=== PATIENT | female | born 1940 | race Hispanic/Latino ===

== ENCOUNTER 2016-11-13 17:43 | Inpatient (IN) | payer OTHER, MEDICAID ==
[2016-11-13 17:43] VITALS: BMI 17.6
[2016-11-13] MEDS ORDERED: Sodium Chloride 0.9% 500 ML IV STA (18:33)
--- NOTE | 2016-11-13 18:40 | ED PDOC ---
Arrival/HPI - General Chief Complaint: Altered Mental Status Time Seen by Provider: 11/13/16 17:44 Historian: Spouse EM Caveat: Altered Mental Status - History of Present Illness Narrative History of Present Illness (Text): 11/13/16 18:37 Bekah Gray is a 76 year old female, whose past medical history includes DVT, PE , hypertension, and COPD, presents to the emergency department via ambulance for evaluation of altered mental status. Patient lives at home with her son. Patient's , who does not currently stay with patient, states that his son informed that patient has been confused and alerted from baseline for past few days. is a poor historian. ROS limited due to AMS. Symptom Onset: Gradual Symptom Course: Worsening Severity Level: Severe Activities at Onset: Light Associated Symptoms (Text): 11/13/16 18:50 History obtained from the who has not lived with the patient for the last 10 years and from the son who does currently live with her. Son states that for the last several days she's been acting strangely. She does not recognize him and is confused. She usually drinks daily, but has not been drinking for the last 3 or 4 days. She has a very poor by mouth intake. No cough. No dyspnea. No vomiting. No trauma. No travel or exposure. Patient is unable to give any history. She is not oriented to person place or time. She is unable to follow commands. Past Medical History - Provider Review Nursing Documentation Reviewed: Yes - Infectious Disease Hx of Infectious Diseases: None - Tetanus Immunization Tetanus Immunization: Unknown - Past Medical History Past Medical History: Unable to Obtain - Cardiac Hx Cardiac Disorders: Yes Hx Congestive Heart Failure: Yes Hx Hypertension: Yes - Pulmonary Hx Respiratory Disorders: Yes Hx Chronic Obstructive Pulmonary Disease (COPD): Yes - Neurological Hx Neurological Disorder: No - HEENT Hx HEENT Disorder: Yes Hx Cataracts: Yes (bilateral with surgery) Hx Glaucoma: Yes - Renal Hx Renal Disorder: No - Endocrine/Metabolic Hx Endocrine Disorders: No - Hematological/Oncological Hx Blood Disorders: No - Integumentary Hx Dermatological Disorder: No - Musculoskeletal/Rheumatological Hx Musculoskeletal Disorders: Yes Hx Back Pain: Yes Hx Falls: Yes Hx Unsteady Gait: Yes - Gastrointestinal Hx Gastrointestinal Disorders: No - Genitourinary/Gynecological Hx Genitourinary Disorders: Yes Hx Incontinence: Yes - Psychiatric Hx Psychophysiologic Disorder: No Hx Depression: No Hx Emotional Abuse: No Hx Physical Abuse: No Hx Substance Use: No - Past Surgical History Past Surgical History: Unable to Obtain - Surgical History Hx Musculoskeletal Surgery: Yes (3 hip replacements as per grandson) - Anesthesia Hx Anesthesia: Yes Hx Anesthesia Reactions: No - Suicidal Assessment Feels Threatened In Home Enviroment: No Family/Social History - Physician Review Nursing Documentation Reviewed: Yes Family/Social History: No Known Family HX Smoking Status: Former Smoker Hx Alcohol Use: Yes (Social as per grandson) Frequency of alcohol use: Daily Hx Substance Use: No Hx Substance Use Treatment: No Allergies/Home Meds Allergies/Adverse Reactions: Allergies Penicillins Allergy (Intermediate, Verified 11/13/16 18:21) SHORTNESS OF BREATH pentazocine lactate [From Talwin] Allergy (Verified 11/13/16 18:21) SHORTNESS OF BREATH Home Medications: Home Meds Medication Instructions Recorded Confirmed Metoprolol Succinate [Toprol XL] 25 mg PO DAILY 08/24/15 11/13/16 Aspirin [Ecotrin] 81 mg PO DAILY 11/24/15 06/21/16 Atorvastatin [Lipitor] 20 mg PO DAILY 11/24/15 11/13/16 Donepezil [Aricept] 5 mg PO HS 11/24/15 06/21/16 Furosemide [Lasix] 20 mg PO DAILY 11/24/15 11/13/16 Oxybutynin [Oxybutynin Chloride] 5 mg PO Q12 11/24/15 11/13/16 Pantoprazole [Protonix] 40 mg PO DAILY 11/24/15 06/21/16 Prednisolone [Millipred] 20 mg PO DAILY 11/24/15 11/24/15 Sertraline [Zoloft] 50 mg PO HS 11/24/15 06/21/16 Xarelto Rivaroxaban 20 mg PO DAILY 11/24/15 06/21/16 traMADol [Ultram] 50 mg PO BID 11/13/16 11/13/16 Review of Systems - Review of Systems Systems not reviewed;Unavailable: Altered Mental Status Physical Exam Vital Signs Reviewed: Yes Vital Signs Temp Pulse Resp BP Pulse Ox 11/13/16 21:30 97.8 F 74 16 149/94 H 100 11/13/16 20:00 70 16 155/103 H 100 11/13/16 18:14 98.5 F 76 18 149/80 96 Temperature: Afebrile Blood Pressure: Normal Pulse: Regular Respiratory Rate: Normal Appearance: Positive for: Non-Toxic Pain Distress: None Mental Status: Positive for: Confused, other (Alert. Not oriented to person, place or time. ) Finger Stick Blood Glucose: 75 - Systems Exam Head: Present: Atraumatic, Normocephalic Pupils: Present: PERRL Extroacular Muscles: Present: EOMI Conjunctiva: Present: Normal Ears: Present: NORMAL TM, Normal Canal. No: Erythema Mouth: Present: Moist Mucous Membranes Pharnyx: No: ERYTHEMA, EXUDATE, TONSILS ENLARGED Neck: Present: Normal Range of Motion. No: Meningeal Signs, MIDLINE TENDERNESS , Paraspinal Tenderness Respiratory/Chest: Present: Clear to Auscultation, Good Air Exchange, Decreased Breath Sounds. No: Respiratory Distress, Accessory Muscle Use Cardiovascular: Present: Regular Rate and Rhythm, Normal S1, S2. No: Murmurs Abdomen: Present: Normal Bowel Sounds. No: Tenderness, Distention, Peritoneal Signs, Rebound, Guarding Upper Extremity: Present: Normal Inspection. No: Cyanosis, Edema Lower Extremity: Present: Normal Inspection. No: Edema Neurological: Present: CN II-XII Intact, Speech Normal, Motor Func Grossly Intact, Other (patient is unable to follow commands, but able to move all extremities. Unable to examine sensation, coordination and gaze ) Skin: Present: Warm, Dry, Normal Color. No: Rashes Psychiatric: Present: Alert Medical Decision Making ED Course and Treatment: 11/13/16 18:44 Impression: A 76 year old female who presents to the emergency department for confusion and AMS. Plan: -- EKG -- CT Head -- Labs, cardiac enzymes -- Ammonia -- TSH -- Drug screen -- Urinalysis -- Reassess and disposition Progress Notes: 11/13/16 18:45 11/13/16 18:58 EKG shows normal sinus rhythm rate approximately 75 with nonspecific anterior and lateral T-wave changes and no acute ST-T changes 11/13/16 20:45 CT scan of the head as read by the radiologist shows no acute findings 11/13/16 21:46 Discussed with who will admit to Dr. Peña's service - Lab Interpretations Lab Results: 11/13/16 18:40 11/13/16 18:40 Lab Results 11/13/16 18:40: WBC 7.3 D, RBC 4.51, Hgb 12.3, Hct 35.9 L, MCV 79.6 L, MCH 27.3 , MCHC 34.3, RDW 16.3 H, Plt Count 315, MPV 8.8, Gran % 59.9, Lymph % (Auto) 23.8, [place] % (Auto) 12.1 H, Eos % (Auto) 3.9, Baso % (Auto) 0.3, Gran # 4.36, Lymph # 1.7, [place]aden # 0.9 H, Eos # 0.3, Baso # 0.02, PT 10.8, INR 1.00, APTT 25.9 , Sodium 129 L, Potassium 3.5 L, Chloride 97 L, Carbon Dioxide 22, Anion Gap 14 , BUN 29 H, Creatinine 1.0, Est GFR ( Amer) > 60, Est GFR (Non-Af Amer) 54, Random Glucose 85, Calcium 8.9, Phosphorus 4.8 H, Magnesium 2.2, Total Bilirubin 0.6, AST 22, ALT 25, Alkaline Phosphatase 87, Ammonia < 9 L, Lactate Dehydrogenase 378, Total Creatine Kinase 25 L, Troponin I < 0.01 D, Total Protein 7.2, Albumin 3.7, Globulin 3.5, Albumin/Globulin Ratio 1.1, TSH 3rd Generation 0.71, Urine Color Straw, Urine Appearance Clear, Urine pH 6.0, Ur Specific [place] 1.015, Urine Protein Negative, Urine Glucose (UA) Negative, Urine Ketones Negative, Urine Blood Negative, Urine Nitrate Positive H, Urine Bilirubin Negative, Urine Urobilinogen 0.2, Ur Leukocyte Esterase Small H, Urine RBC 0 - 2, Urine WBC 0 - 2, Ur Epithelial Cells 0 - 2, Urine Bacteria Many , Salicylates < 1 L, Urine Opiates Screen Negative, Urine Methadone Screen Negative, Acetaminophen < 10.0 L, Ur Barbiturates Screen Negative, Ur Phencyclidine Scrn Negative, Ur Amphetamines Screen Negative, U Benzodiazepines Scrn Negative, U Oth Cocaine Metabols Negative, U Cannabinoids Screen Negative, Alcohol, Quantitative < 10 I have reviewed the lab results: Yes - RAD Interpretation Radiology Orders: 11/13/16 18:33 HEAD W/O CONTRAST [CT] Stat 11/13/16 18:34 CHEST PORTABLE [RAD] Stat Chest 1 view shows no infiltrate effusion or cardiomegaly Survey Supervisor: ED Physician - EKG Interpretation Interpreted by ED Physician: Yes Type: 12 lead EKG - Medication Orders Current Medication Orders: Discontinued Medications Sodium Chloride (Sodium Chloride 0.9%) 500 mls @ 1,000 mls/hr IV .Q30M STA Stop: 11/13/16 19:02 Last Admin: 11/13/16 18:35 Dose: 1,000 MLS/HR eMAR Start Stop Document 11/13/16 18:35 SF (Rec: 11/13/16 20:46 SF [facility] [id number]) Intravenous Solution Start Date 11/13/16 Start Time 18:35 End Date 11/13/16 End time 19:05 Total Infusion Time 30 - Scribe Statement The provider has reviewed the documentation as recorded by the Ally Kramer Provider Attestation: All medical record entries made by the Ally were at my direction and personally dictated by me. I have reviewed the chart and agree that the record accurately reflects my personal performance of the history, physical exam, medical decision making, and the department course for this patient. I have also personally directed, reviewed, and agree with the discharge instructions and disposition. Disposition/Present on Arrival - Present on Arrival Any Indicators Present on Arrival: No History of DVT/PE: Yes History of Uncontrolled Diabetes: No Urinary Catheter: No History of Decub. Ulcer: No History Surgical Site Infection Following: CABG - Mediastinitis, None - Disposition Have Diagnosis and Disposition been Completed?: Yes Diagnosis: Altered mental status Disposition: HOSPITALIZED Disposition Time: 21:47 Patient Plan: Observation, Telemetry Patient Problems: Current Active Problems Problem Status Diagnosed Altered mental status Acute CHF (congestive heart failure) Acute COPD (chronic obstructive pulmonary disease) Acute Condition: GUARDED
[2016-11-13 19:01] LABS: ADD MANUAL DIFF? NO
[2016-11-13 19:07] LABS: BASO # 0.02 K/mm3 (0.0-2.0); BASO % 0.3 % (0.0-3.0); EOS # 0.3 (0.0-0.7); EOS % 3.9 % (1.5-5.0); GRAN # 4.36 (1.4-6.5); GRAN % 59.9 % (50.0-68.0); HEMATOCRIT 35.9 % (36.0-48.0); LYMPH # 1.7 (1.2-3.4); LYMPH % 23.8 % (22.0-35.0); MEAN CELL VOLUME 79.6 fL (80.0-105.0); MEAN CORPUSCULAR HEMOGLOBIN 27.3 pg (25.0-35.0); MEAN CORPUSCULAR HGB CONC 34.3 g/dl (31.0-37.0); MEAN PLATELET VOLUME 8.8 fl (7.0-11.0); MONO # 0.9 (0.1-0.6); MONO % 12.1 % (1.0-6.0); PLATELET COUNT 315 10^3/uL (120.0-450.0); RED CELL DISTRIBUTION WIDTH 16.3 % (11.5-14.5); WHITE BLOOD COUNT 7.3 10^3/ul (4.5-11.0)
[2016-11-13 19:09] LABS: URINE APPEARANCE CLEAR (CLEAR); URINE BILIRUBIN NEGATIVE (NEGATIVE); URINE BLOOD NEGATIVE (NEGATIVE); URINE COLOR STRAW (YELLOW); URINE GLUCOSE (UA) NEGATIVE (NEGATIVE); URINE KETONE NEGATIVE (NEGATIVE); URINE LEUKOCYTE ESTERASE SMALL Leu/uL (NEGATIVE); URINE PROTEIN NEGATIVE mg/dL (<30 mg/dL); URINE UROBILINOGEN 0.2 E.U./dL (<1 E.U./dL)
[2016-11-13 19:18] LABS: ALB/GLOB RATIO 1.1 (1.1-1.8); ALKALINE PHOSPHATASE 87 U/L (38-133); ALT/SGPT 25 U/L (7-56); AST/SGOT 22 U/L (15-39); BILIRUBIN,TOTAL 0.6 mg/dL (0.2-1.3); BLOOD UREA NITROGEN 29 mg/dL (7-21); CALCIUM 8.9 mg/dL (8.4-10.5); CARBON DIOXIDE 22 mmol/L (21-33); CHLORIDE 97 mmol/L (98-107); GFR AFRICAN-AMERICAN > 60; GLUCOSE,RANDOM 85 mg/dL (70-110); MAGNESIUM 2.2 mg/dL (1.7-2.2); PHOSPHOROUS 4.8 mg/dL (2.5-4.5); POTASSIUM 3.5 mmol/L (3.6-5.0); SODIUM 129 mmol/L (132-148); TOTAL PROTEIN 7.2 g/dL (5.8-8.3)
[2016-11-13 19:19] LABS: PARTIAL THROMBOPLASTIN TIME 25.9 Seconds (23.7-30.8)
[2016-11-13 19:20] LABS: ALCOHOL SERUM < 10 mg/dL (0-10)
[2016-11-13 19:28] LABS: URINE RBC 0 - 2 /hpf (0-2); URINE WBC 0 - 2 /hpf (0-6)
[2016-11-13 19:29] LABS: URINE BACTERIA MANY (NEG); URINE EPITHELIAL CELLS 0 - 2 /hpf (0-5)
[2016-11-13 19:30] LABS: TROPONIN I < 0.01 ng/mL
[2016-11-13 19:48] LABS: THYROID STIMULATING HORMONE 0.71 mIU/mL (0.46-4.68)
[2016-11-14] MEDS ORDERED: Potassium Chloride 10 mEq 100 ML IVPB ONE (01:27)
--- NOTE | 2016-11-14 01:43 | CP.PCM.PN ---
Subjective - Date & Time of Evaluation Date of Evaluation: 11/14/16 Time of Evaluation: 01:41 - Subjective Subjective: S:Nurse Christopher tell that K is 3.5 mEq. No vomiting, diarrhoea. Not on diuretic. Medical record reviewed. O: Last Vital Signs 3 Temp 98.0 F 11/14/16 00:22 Pulse 88 11/14/16 00:22 Resp 16 11/14/16 00:22 BP 155/82 H 11/14/16 00:22 Pulse Ox 98 11/14/16 00:22 Not in distress. LUNGS:Normal breathing pattern. A:Hypokalemia-borderline. P:Hypokalemia. Objective - Vital Signs/Intake and Output Vital Signs (last 24 hours): Temp Pulse Resp BP Pulse Ox 98.0 F 88 16 155/82 H 98 11/14/16 00:22 11/14/16 00:22 11/14/16 00:22 11/14/16 00:22 11/14/16 00:22 - Medications Medications: Current Medications Potassium Chloride (Potassium Chloride 10 Meq/100 Ml) 100 mls @ 100 mls/hr IVPB ONCE ONE Stop: 11/14/16 02:26 - Labs Labs: PT 10.8 Seconds (9.9-11.8) 11/13/16 18:40 INR 1.00 (0.93-1.08) 11/13/16 18:40 APTT 25.9 Seconds (23.7-30.8) 11/13/16 18:40
--- NOTE | 2016-11-14 08:14 | RAD ---
HISTORY: ams COMPARISON: 08/29/2016 FINDINGS: LUNGS: No active pulmonary disease. PLEURA: No significant pleural effusion identified, no pneumothorax apparent. CARDIOVASCULAR: Severe cardiomegaly OSSEOUS STRUCTURES: No significant abnormalities. VISUALIZED UPPER ABDOMEN: Normal. OTHER FINDINGS: None. IMPRESSION: No active disease.
[2016-11-14 08:36] LABS: BLOOD UREA NITROGEN 21 mg/dL (7-21); CALCIUM 8.4 mg/dL (8.4-10.5); CARBON DIOXIDE 22 mmol/L (21-33); CHLORIDE 102 mmol/L (98-107); GFR AFRICAN-AMERICAN > 60; GLUCOSE,RANDOM 87 mg/dL (70-110); POTASSIUM 3.9 mmol/L (3.6-5.0); SODIUM 132 mmol/L (132-148)
--- NOTE | 2016-11-14 09:11 | CT ---
PROCEDURE: CT HEAD WITHOUT CONTRAST. HISTORY: ams COMPARISON: 11/24/2015 TECHNIQUE: Axial computed tomography images were obtained through the head/brain without intravenous contrast. Radiation dose: Total exam DLP = 778 mGy-cm. This CT exam was performed using one or more of the following dose reduction techniques: Automated exposure control, adjustment of the mA and/or kV according to patient size, and/or use of iterative reconstruction technique. FINDINGS: HEMORRHAGE: No intracranial hemorrhage. BRAIN: No mass effect or edema. Severe chronic microvascular changes are seen in the periventricular white matter. There is also moderate atrophy VENTRICLES: Unremarkable. No hydrocephalus. CALVARIUM: Unremarkable. PARANASAL SINUSES: Unremarkable as visualized. No significant inflammatory changes. MASTOID AIR CELLS: Unremarkable as visualized. No inflammatory changes. OTHER FINDINGS: The report concurs with the preliminary [facility] report IMPRESSION: No acute intracranial findings
[2016-11-14] MEDS ORDERED: Pantoprazole 40 mg EC Tab PO SCH (10:00)
--- NOTE | 2016-11-14 10:17 | HP ---
HISTORY OF PRESENT ILLNESS: The patient is a 76-year-old female who presents to [facility] er secondary to altered mental status at home. The patient does not recall things that happened to b ring her here; however, she does believe she might have also fallen when she was at home. PAST MEDICAL HISTORY: Significant for hypertension, history of deep venous thrombosis and pulmonary embolism in the past, COPD and history of vertebral body compression fractures. MEDICAL ALLERGIES: PENICILLIN. SOCIAL HISTORY: No smoking, no drinking, no drug use. MEDICATIONS: Please see MAR. REVIEW OF SYSTEMS: Due to the patient's altered mental status, she is unable to give me a true revie w of systems; however, she does not look like she is in any acute distress. Denies any chest pain, s hortness of breath, nausea; however, states that she is having some abdominal pain. PHYSICAL EXAMINATION: VITAL SIGNS: Blood pressure 120/80. Pulse rate is 84, temperature is 98.9, O2 saturation is 95 on r oom air. HEENT: Normocephalic, atraumatic. Pale conjunctivae. Nonicteric sclerae. NECK: No JVD, no thyromegaly. CARDIOVASCULAR: Regular rate and rhythm. S1, S2 appreciated. No S3 noted. LUNGS: Bilateral air entry is positive. No wheezes or rhonchi. ABDOMEN: Nondistended, nontender. Positive bowel sounds. EXTREMITIES: Peripheral pulses +2 with no pitting edema. NEUROLOGICAL: Alert and oriented x 1. Cranial nerves II-XII grossly intact. LABORATORY DATA: WBCs of 7.3, hemoglobin of 12.3, hematocrit 35.9, platelets of 315. Chemistry with in normal limits this morning after replacing her potassium. Initial troponin was negative. Ammonia level was less than 9. Toxicology is negative. CT scan of the head was done which was also negativ e at this time. ASSESSMENT: 1. Altered mental status. 2. Lumbar fracture in the past. 3. Hypertension. 4. Chronic obstructive pulmonary disease. 5. Questionable history of dementia. PLAN: At this time, we will get a consult with Dr. Yury Clayton for evaluation. I will hold off on an MRI at this point until he decides if that is necessary. IV fluids. Keep the patient n.p.o. due to the fact that the patient is so confused, she needs to have a swallow evaluation done first. Rec onciled her medication and will watch very closely. Morales Salinas MD cc: [id number] TT: 11/14/2016 10:16:03 jn
[2016-11-14] MEDS: Sodium Chloride 0.45% 1,000 ML IV SCH (15:01)
--- NOTE | 2016-11-14 15:01 | CARD ---
APPROVED REPORT EKG Measurement Heart [id number] <Conclusion> Normal sinus rhythm Left axis deviation Nonspecific T wave abnormality Abnormal ECG
[2016-11-14] MEDS: Metoprolol Succinate 25 mg XL Tab PO SCH (15:08)
--- NOTE | 2016-11-14 16:10 | CON ---
DATE: 11/14/2016 CHIEF COMPLAINT: Altered mental status. HISTORY OF PRESENT ILLNESS: The history is obtained from the medical record. This is a 76-year-old woman with history of hypertension, history of DVT, pulmonary embolism in the past, COPD, multiple ve rtebral body compressions, apparently was found confused and altered at home. She does not recall th e things that happened to bring her here but says she might have fallen when she was at home. The CT head showed no acute intracranial abnormalities, just showed an old left parietal infarct from the p ast. She has mild residual subtle right-sided weakness from that. Currently, she is stable. Her sp eech is intact. She is in no acute distress. She is follows simple commands. She is found to be hy ponatremic with sodium 129, low potassium at 3.5 and elevated BUN of 29 indicating she was dehydrated . Urine: Shows positive nitrite and a small leukocyte esterase indicating a small urinary tract inf ection. She is on aspirin 81 mg and Lipitor 20 mg p.o. daily for stroke prevention. PAST MEDICAL HISTORY: Significant for hypertension, DVT, pulmonary embolism, COPD, history of verteb ral body compression fractures. MEDICAL ALLERGIES: PENICILLIN. SOCIAL HISTORY: No illicit drug use, smoking, or ETOH abuse. MEDICATIONS: Reviewed via nurses' reconciliation sheet. REVIEW OF SYSTEMS: A 14-point review of systems is negative except for the HPI. She has baseline de mentia. PHYSICAL EXAMINATION: VITAL SIGNS: Temperature 98.4, pulse rate of 84, blood pressure 131/78, respiratory rate 20, oxygen 98% via room air. GENERAL: The patient is sitting up in bed in no acute distress, smiling. HEENT: Atraumatic, normocephalic. PERRLA. Extraocular muscles intact. NECK: Supple, no JVD, no adenopathy noted. LUNGS: Clear to auscultation. No adventitious sounds. HEART: S1, S2 regular rate and rhythm. No murmurs, rubs, or gallops. ABDOMEN: Soft, nontender, nondistended. Bowel sounds are present. EXTREMITIES: No clubbing, no cyanosis. Peripheral pulses 2+ felt bilaterally. NEUROLOGIC: The patient is alert, oriented to person and place, not much of month and year. Poor at tention span. Slow thought process. Recall after 5 minutes is 0 out of 3. Cranial nerves II throug h XII are intact. MOTOR: Moves all extremities equally, slight increased tone throughout. Has muscle right upper extr emity weakness, which is residual from an old left parietal cerebrovascular accident. SENSORY: Light touch, pinprick, proprioception, vibration intact. COORDINATION: [id number] is intact. GAIT: Deferred for now. LABORATORY DATA: UA shows leukocyte esterase small with positive nitrogen secondary to small urinary tract infection. Her current sodium now is 132, potassium 3.9, chloride 102, carbon dioxide of 22, BUN of 21, creatinine 0.9, random glucose 87. 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 I was called for altered mental status. I think altered mental status is lik victorino secondary to transient confusional state with superimposed underlying deconditioned state and leola ctrolyte abnormalities. At this time, 1. Monitor electrolytes and correct accordingly. 2. Keep the systolic blood pressure between 120 and 130 mmHg. 3. Continue with her Aricept daily for her dementia. 4. Continue with aspirin 81, Lipitor 20 mg p.o. daily for stroke prevention. 5. Get physical therapy evaluation and possible subacute rehabilitation if necessary. 6. At this time, she is clinically stable from my standpoint. Please reconsult as necessary. Yury Clayton MD cc: [id number] TT: 11/14/2016 16:09:58 Confirmation # [id number] Dictation # [id number] musa
[2016-11-15 08:21] LABS: ADD MANUAL DIFF? NO
[2016-11-15 08:35] LABS: ALB/GLOB RATIO 1.1 (1.1-1.8); ALKALINE PHOSPHATASE 85 U/L (38-133); ALT/SGPT 27 U/L (7-56); AST/SGOT 23 U/L (15-39); BILIRUBIN,TOTAL 1.6 mg/dL (0.2-1.3); BLOOD UREA NITROGEN 19 mg/dL (7-21); CALCIUM 8.7 mg/dL (8.4-10.5); CARBON DIOXIDE 20 mmol/L (21-33); CHLORIDE 101 mmol/L (98-107); GFR AFRICAN-AMERICAN > 60; GLUCOSE,RANDOM 59 mg/dL (70-110); POTASSIUM 4.3 mmol/L (3.6-5.0); SODIUM 134 mmol/L (132-148); TOTAL PROTEIN 6.6 g/dL (5.8-8.3)
[2016-11-15 08:36] LABS: BASO # 0.03 K/mm3 (0.0-2.0); BASO % 0.7 % (0.0-3.0); EOS # 0.1 (0.0-0.7); EOS % 2.8 % (1.5-5.0); GRAN # 2.29 (1.4-6.5); GRAN % 53.6 % (50.0-68.0); LYMPH # 1.4 (1.2-3.4); LYMPH % 32.9 % (22.0-35.0); MEAN CELL VOLUME 80.9 fL (80.0-105.0); MEAN CORPUSCULAR HGB CONC 33.3 g/dl (31.0-37.0); MEAN PLATELET VOLUME 8.7 fl (7.0-11.0); MONO # 0.4 (0.1-0.6); PLATELET COUNT 294 10^3/uL (120.0-450.0); RED CELL DISTRIBUTION WIDTH 16.2 % (11.5-14.5); WHITE BLOOD COUNT 4.3 10^3/ul (4.5-11.0)
[2016-11-15] MEDS: Metoprolol Succinate 25 mg XL Tab PO SCH (10:41)
--- NOTE | 2016-11-15 11:55 | PN ---
DATE: 11/15/2016 I see her in her bed. She is pleasantly confused, alert, comfortable, but definitely off from where she usually is. MEDICATIONS: She is on IV fluids, Aricept, Ditropan, Ecotrin, Lasix, Lipitor, Motrin, potassium replacement, Protonix, and metoprolol. PHYSICAL EXAMINATION: VITAL SIGNS: Temp 98.4, 89 pulse, 126/95 blood pressure. I am going to evaluate her blood pressure again, because that is new. Respiratory rate 19, 94 % O2 sat on room air. HEAD: Atraumatic, normocephalic. GENERAL: Alert. She is smiling. She knew me after I told her who I was. HEART: Regular rate. LUNGS: Clear to auscultation. ABDOMEN: Soft. EXTREMITIES: No edema. LABORATORY DATA: She has a 4.3 white count, 12 hemoglobin, 36 hematocrit with 294 platelets. INR 1. She has a 134 sodium; it is better. It was low when she came in. Potassium is 4.3. It was low when she came in. BUN is 19 better. It was high, a little hydrated. Creatinine is better 0.9. GFR is greater than 60. Sugar. Calcium is 8.7. Total bili is 1.6. AST is 23. ALT is 27, alk phos 85, total protein 6.6. Thyroid was fine. The urine though had many bacteria. I am going to call on infectious disease input on IV antibiotics. She is ALLERGIC TO PENICILLIN. We will see how she does with antibiotics. She has been seen by Dr. Clayton, the neurologist. She had a CAT scan of the head, chest x-ray, and EKG, which were fairly well. No acute changes. I am going to add Norvasc, which is another blood pressure medication for the elevated blood pressure. Hoping the antibiotics will help her get rid of the infection, and then maybe she will clear up, and she is probably going to need to have physical therapy and probably go to rehab. Angus Peña DO cc: [id number] TT: 11/15/2016 11:54:11 Confirmation # [id number] Dictation # [id number] jn GLADIS
[2016-11-15] MEDS: Aztreonam 2 Gm in NS 100mL 100 ML IVPB SCH ×2 (14:51→22:05)
--- NOTE | 2016-11-15 15:27 | CP.PCM.CON ---
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 There was no note of fever or chills, no vomiting, no convulsions, no diarrhea, no loss of consciousness. The patient had poor PO intake. In the ED, the patient was not as confused and currently the patient does not recall much why she was brought to the hospital. She denies fever or chills, no nausea or vomiting, no chest pain, no headache or dizziness, no abdominal pain but she complains of occasional suprapubic pain. She denies dysuria, no urinary frequency or hesitancy, no diarrhea. Urine cx is showing gram negative bacilli. Infectious Diseases consult is requested to further evaluate and manage. Review of Systems - Review of Systems All systems: reviewed and no additional remarkable complaints except (as per HPI ) Past Patient History - Infectious Disease Hx of Infectious Diseases: None - Tetanus Immunizations Tetanus Immunization: Unknown - Past Social History Smoking Status: Former Smoker - CARDIAC Hx Cardiac Disorders: Yes Hx Congestive Heart Failure: Yes Hx Hypercholesterolemia: Yes Hx Hypertension: Yes - PULMONARY Hx Respiratory Disorders: Yes Hx Chronic Obstructive Pulmonary Disease (COPD): Yes - NEUROLOGICAL Hx Neurological Disorder: No - HEENT Hx HEENT Problems: Yes Hx Cataracts: Yes - RENAL Hx Chronic Kidney Disease: No - ENDOCRINE/METABOLIC Hx Endocrine Disorders: No - HEMATOLOGICAL/ONCOLOGICAL Hx Blood Disorders: No - INTEGUMENTARY Hx Dermatological Problems: No - MUSCULOSKELETAL/RHEUMATOLOGICAL Hx Musculoskeletal Disorders: Yes Hx Back Pain: Yes Hx Falls: Yes Hx Fractures: Yes (left hip) - GASTROINTESTINAL Hx Gastrointestinal Disorders: No - GENITOURINARY/GYNECOLOGICAL Hx Genitourinary Disorders: Yes Hx Incontinence: Yes - PSYCHIATRIC Hx Psychophysiologic Disorder: No Hx Substance Use: No - SURGICAL HISTORY Hx Surgeries: Yes - ANESTHESIA Hx Anesthesia: Yes Hx Anesthesia Reactions: No Meds Allergies/Adverse Reactions: Allergies Allergy/AdvReac Type Severity Reaction Status Date / Time Penicillins Allergy Intermediate SHORTNESS Verified 11/13/16 18:21 OF BREATH pentazocine lactate Allergy SHORTNESS Verified 11/13/16 18:21 [From Aleksandr] OF BREATH - Medications Medications: Current Medications Amlodipine Besylate (Norvasc) 2.5 mg PO DAILY [facility] Aspirin (Ecotrin) 81 mg PO DAILY [facility] Last Admin: 11/15/16 10:40 Dose: Not Given Atorvastatin Calcium (Lipitor) 20 mg PO DAILY [facility] Last Admin: 11/15/16 10:40 Dose: Not Given Donepezil HCl (Aricept) 5 mg PO HS [facility] Last Admin: 11/14/16 21:09 Dose: Not Given Furosemide (Lasix) 20 mg PO DAILY [facility] Last Admin: 11/15/16 10:40 Dose: Not Given Sodium Chloride (Sodium Chloride 0.45%) 1,000 mls @ 60 mls/hr IV .[id number] [facility] Last Admin: 11/14/16 15:01 Dose: 60 mls/hr Ibuprofen (Motrin Tab) 600 mg PO Q6 PRN PRN Reason: Pain, moderate (4-7) Metoprolol Succinate (Toprol Xl) 25 mg PO DAILY [facility] Last Admin: 11/15/16 10:41 Dose: Not Given Oxybutynin Chloride (Ditropan Tab) 5 mg PO Q12 [facility] Last Admin: 11/15/16 10:40 Dose: Not Given Pantoprazole Sodium (Protonix Inj) 40 mg IVP DAILY [facility] Last Admin: 11/15/16 10:40 Dose: 40 mg Physical Exam - Constitutional Appears: Non-toxic, No Acute Distress - Head Exam Head Exam: NORMAL INSPECTION - ENT Exam ENT Exam: Mucous Membranes Moist - Neck Exam Neck exam: Negative for: Lymphadenopathy, Meningismus - Respiratory Exam Respiratory Exam: Decreased Breath Sounds - Cardiovascular Exam Cardiovascular Exam: +S1, +S2 - GI/Abdominal Exam GI & Abdominal Exam: Soft. absent: Tenderness Results - Vital Signs Recent Vital Signs: Last Vital Signs Temp 98.4 F 11/15/16 06:00 Pulse 89 11/15/16 06:00 Resp 19 11/15/16 06:00 BP 156/95 H 11/15/16 06:00 Pulse Ox 94 L 11/15/16 06:00 - Labs Result Diagrams: 11/15/16 08:19 11/15/16 08:19 Labs: Laboratory Results - last 24 hr 11/15/16 08:19 WBC 4.3 L D RBC 4.45 Hgb 12.0 Hct 36.0 MCV 80.9 MCH 27.0 MCHC 33.3 RDW 16.2 H Plt Count 294 MPV 8.7 Gran % 53.6 Lymph % (Auto) 32.9 [place] % (Auto) 10.0 H Eos % (Auto) 2.8 Baso % (Auto) 0.7 Gran # 2.29 Lymph # 1.4 [place] # 0.4 Eos # 0.1 Baso # 0.03 Sodium 134 Potassium 4.3 Chloride 101 Carbon Dioxide 20 L Anion Gap 17 BUN 19 Creatinine 0.9 Est GFR ( Amer) > 60 Est GFR (Non-Af Amer) > 60 Random Glucose 59 L Calcium 8.7 Total Bilirubin 1.6 H AST 23 ALT 27 Alkaline Phosphatase 85 Total Protein 6.6 Albumin 3.4 Globulin 3.2 Albumin/Globulin Ratio 1.1 Assessment & Plan - Assessment and Plan (Free Text) Plan: Assessment Probable urinary tract infection (suprapubic pain/tenderness with gram negative bacilli in the urine) Probable toxic-metabolic encephalopathy (electrolyte abnormalities) DVT/PE HTN COPD vertebral compression fracture 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
[2016-11-16] MEDS ORDERED: DiphenhydrAMINE 12.5 mg/5 ml LIQ UD (5 ml) PO STA (01:02)
--- NOTE | 2016-11-16 01:03 | CP.PCM.PN ---
Subjective - Date & Time of Evaluation Date of Evaluation: 11/16/16 Time of Evaluation: 01:02 - Subjective Subjective: S:Patient was seen because as per nurse she asked for something to sleep.Can not fall sleep. Patient states ,"I do not know who am I ", "I don not know where am I" Offers no other complaints. Pertinent medical record was reviewed. O: Last Vital Signs 3 Temp 97.8 F 11/16/16 00:01 Pulse 72 11/16/16 02:00 Resp 18 11/16/16 00:01 BP 155/89 H 11/16/16 00:01 Pulse Ox 96 11/16/16 00:01 Awake,alert, not in distress. Confused. LUNGS:Normal breathing pattern. A:Insomnia. Confusion. P:Benadryl 12.5 mg PO x 1. Objective - Vital Signs/Intake and Output Vital Signs (last 24 hours): Temp Pulse Resp BP Pulse Ox 97.6 F 74 20 170/93 H 94 L 11/15/16 18:00 11/15/16 18:00 11/15/16 18:00 11/15/16 18:00 11/15/16 06:00 Intake and Output: 11/15/16 11/16/16 18:59 06:59 Intake Total 0 420 Output Total 5 0 Balance -5 420 - Medications Medications: Current Medications Amlodipine Besylate (Norvasc) 2.5 mg PO DAILY [facility] Last Admin: 11/15/16 11:45 Dose: Not Given Aspirin (Ecotrin) 81 mg PO DAILY [facility] Last Admin: 11/15/16 10:40 Dose: Not Given Atorvastatin Calcium (Lipitor) 20 mg PO DAILY [facility] Last Admin: 11/15/16 10:40 Dose: Not Given Donepezil HCl (Aricept) 5 mg PO HS [facility] Last Admin: 11/15/16 22:05 Dose: 5 mg Furosemide (Lasix) 20 mg PO DAILY [facility] Last Admin: 11/15/16 10:40 Dose: Not Given Sodium Chloride (Sodium Chloride 0.45%) 1,000 mls @ 60 mls/hr IV .[id number] [facility] Last Admin: 11/14/16 15:01 Dose: 60 mls/hr Aztreonam (Azactam 2 Gm) 100 mls @ 100 mls/hr IVPB Q8 [facility] PRN Reason: Protocol Stop: 11/22/16 14:01 Last Admin: 11/15/16 22:05 Dose: 100 mls/hr Ibuprofen (Motrin Tab) 600 mg PO Q6 PRN PRN Reason: Pain, moderate (4-7) Metoprolol Succinate (Toprol Xl) 25 mg PO DAILY [facility] Last Admin: 11/15/16 10:41 Dose: Not Given Oxybutynin Chloride (Ditropan Tab) 5 mg PO Q12 [facility] Last Admin: 11/15/16 22:05 Dose: 5 mg Pantoprazole Sodium (Protonix Inj) 40 mg IVP DAILY [facility] Last Admin: 11/15/16 10:40 Dose: 40 mg - Labs Labs: 11/15/16 08:19 11/15/16 08:19 PT 10.8 Seconds (9.9-11.8) 11/13/16 18:40 INR 1.00 (0.93-1.08) 11/13/16 18:40 APTT 25.9 Seconds (23.7-30.8) 11/13/16 18:40
[2016-11-16] MEDS: Aztreonam 2 Gm in NS 100mL 100 ML IVPB SCH ×3 (03:07→22:52)
[2016-11-16 07:34] LABS: HEMATOCRIT 34.4 % (36.0-48.0); MEAN CELL VOLUME 79.8 fL (80.0-105.0); MEAN CORPUSCULAR HEMOGLOBIN 27.1 pg (25.0-35.0); MEAN PLATELET VOLUME 8.5 fl (7.0-11.0); WHITE BLOOD COUNT 6.6 10^3/ul (4.5-11.0)
[2016-11-16 07:43] LABS: ALB/GLOB RATIO 1.1 (1.1-1.8); ALKALINE PHOSPHATASE 82 U/L (38-133); ALT/SGPT 23 U/L (7-56); AST/SGOT 22 U/L (15-39); BILIRUBIN,TOTAL 1.2 mg/dL (0.2-1.3); BLOOD UREA NITROGEN 16 mg/dL (7-21); CALCIUM 8.6 mg/dL (8.4-10.5); CARBON DIOXIDE 22 mmol/L (21-33); CHLORIDE 102 mmol/L (95-110); GFR AFRICAN-AMERICAN > 60; GLUCOSE,RANDOM 90 mg/dL (70-110); POTASSIUM 4.2 mmol/L (3.6-5.0); SODIUM 132 mmol/L (132-148); TOTAL PROTEIN 6.4 g/dL (5.8-8.3)
--- NOTE | 2016-11-16 09:44 | DS ---
I saw the patient resting in bed. She is more alert, coherent, and alert today. I think the IV anti biotics are making a difference. She is much more comfortable. She is back to her baseline. She is very weak though and needs physical therapy. I am hoping for [facility] possibly for today - it is a third day overnight. MEDICATIONS: She is on IV fluids, Aricept, Azactam, Benadryl, Ditropan, Ecotrin, Lasix, Lipitor, Mot rin, Norvasc, Protonix, and Toprol. PHYSICAL EXAMINATION: VITAL SIGNS: Temp 98.3, 82 pulse, 142/68 blood pressure, 20 respiratory rate, 96% O2 sat on nasal ca nnula. HEENT: Head is atraumatic, normocephalic. Throat is moist. NECK: Supple. HEART: Regular rate. LUNGS: Clear to auscultation. ABDOMEN: Soft. EXTREMITIES: Weak, contracted. She needs physical therapy, probably some subacute rehab before she goes home. LABORATORY DATA: She has a 6.6 white count, 11.7 hemoglobin, 34.4 hematocrit with 296 platelets. So dium 132, potassium 4.2. BUN 16, creatinine 0.8. GFR is greater than 60. Sugar is 90. Calcium is 8.6. Total bili is 1.2. AST is 22, ALT 23, alk phos 82, total protein 6.4. She had many bacteria. She is now on antibiotics, which I think is the reason why she was confused mentally. She was seen by infectious disease who put her on Azactam, and it could have caused the metabolic enc ephalopathy. She has hypertension, COPD, no diabetes, and I hoping that we can get her to subacute r ehab at [facility] today. She is not waking up, and she is mentally back. We will continue the antib iotics over there. I will discuss that with manager of case and social contact worker today, and I am hoping she is a discharge today to [facility]. She was here for change in mentation, UTI, low potassium, low sodium, which have corrected. Angus Peña DO cc: [id number] TT: 11/16/2016 09:44:04 jn
[2016-11-16] MEDS: Metoprolol Succinate 25 mg XL Tab PO SCH (09:50)
[2016-11-16] MEDS ORDERED: Lidocaine 2% Inj (20ml) ONE (12:38)
--- NOTE | 2016-11-16 17:32 | VASCULAR ---
PROCEDURE: Ultrasound and fluoroscopically placed left upper extremity PICC line. HISTORY: Sepsis. Limited IV access. Needs PICC line. PHYSICIAN(S): Norbert Bradford MD. TECHNIQUE: The relative risks and indications of the procedure were explained to the patient and consent obtained. The patient was placed supine on the arteriogram table and the left arm prepped and draped in the usual sterile fashion. A tourniquet was applied to the left axilla. 1% Xylocaine was used to anesthetize the skin and soft tissues at the puncture site above the elbow. The left basilic vein was punctured under direct ultrasound guidance with a micropuncture set. A 0.018 guidewire was advanced centrally and used to measure the length to the SVC/RA junction. A 5 Bulgarian single-lumen PICC line 44 cm long was advanced to the SVC/RA junction. The catheter was flushed and secured. The patient tolerated the procedure well. IMPRESSION: 1. Ultrasound and fluoroscopically placed left upper extremity PICC line. A 5 Bulgarian single-lumen PICC line 44 cm long was advanced to the SVC/RA junction.
--- NOTE | 2016-11-16 21:45 | PN ---
DATE: 11/16/2016 HISTORY OF PRESENT ILLNESS: The patient is in bed in no acute distress, nontoxic. PHYSICAL EXAMINATION: VITAL SIGNS: Temperature is 98, blood pressure is 118/70, respiratory rate of 16. HEENT: Unremarkable. NECK: Supple. LUNGS: Have decreased breath sounds. HEART: Normal S1, S2. ABDOMEN: Soft, nontender. LABORATORY DATA: Reveals a white count of 6.6, hemoglobin of 11, platelets of 296, BUN of 16, creati nine of 0.8. Microbiology is noted and blood cultures are negative. Urine culture is E. coli and it is relatively sensitive ceftriaxone. Review of the orders reveals the patient to be on aztreo nam. ASSESSMENT AND PLAN: A 76-year-old female with a past medical history of deep venous thrombosis, pul monary embolism, hypertension, chronic obstructive pulmonary disease, who was admitted with Escherich ia coli urinary tract infection, pansensitive, and who is ALLERGIC TO PENICILLIN. Currently on aztre onam. The patient is doing much better. The Escherichia coli is resistant to Cipro, sensitive to Ba ctrim, and may be able to use Bactrim double strength p.o. b.i.d. to complete therapy x 5 days. Gavino Esposito MD cc: [id number] TT: 11/16/2016 21:45:45 Confirmation # [id number] Dictation # [id number]
[2016-11-17] MEDS: Aztreonam 2 Gm in NS 100mL 100 ML IVPB SCH ×2 (05:17→13:06)
[2016-11-17] MEDS ORDERED: Pantoprazole 40 mg EC Tab PO SCH (07:30)
[2016-11-17] MEDS: Sodium Chloride 0.45% 1,000 ML IV SCH (09:23)
[2016-11-17] MEDS: Metoprolol Succinate 25 mg XL Tab PO SCH (09:25)
--- NOTE | 2016-11-17 09:37 | DS ---
I am hoping to get her to a subacute rehab. She had a UTI, change in mentation , COPD, low sodium, low potassium and she is doing much better. She is alert. She is comfortable. She wants to go to physical therapy. She is on Aricept, Azactam, Ditropan, Ecotrin, Lasix, Lipitor, Motrin, Norvasc, Protonix, IV fluids and Toprol. PHYSICAL EXAMINATION: VITAL SIGNS: Temp 97.8, 87 pulse, 118/80 blood pressure, 19 respiratory rate. HEENT: Head is atraumatic, normocephalic. Throat is moist. HEART: Regular rate. LUNGS: Clear to auscultation. NECK: Supple. ABDOMEN: Soft, nontender, positive bowel sounds. EXTREMITIES: Mildly contracted, weak. No edema. She has a 6.6 white count, 11.7 hemoglobin, 296 platelets. Sodium 132, potassium 4.2, BUN is 16, creatinine 0.8, GFR is greater than 60, sugar is 90, calcium is 8.6, AST is 22, ALT is , alk phos is 82. I am hoping that we can transfer her to subacute rehab for physical therapy and IV antibiotics for her infection. I will discuss this with case management and social service manager. Angus Peña DO cc: [id number] TT: 11/17/2016 09:36:48 en MTDD
--- NOTE | 2016-11-17 14:46 | PN ---
DATE: 11/17/2016 The patient seen earlier today in 577, bed 2. SUBJECTIVE: No fevers and chills. No nausea. PHYSICAL EXAMINATION: VITAL SIGNS: Temperature is 97. Blood pressure is 114/70, respiratory rate of 16. HEENT: Unremarkable. NECK: Supple. LUNGS: Decreased breath sounds. HEART: Normal S1, S2. ABDOMEN: Soft, nontender. LABORATORY DATA: Reveals a white count of 6.6, hemoglobin of 11. Chemistries reveals the BUN of 16, creatinine of 0.8. Urinalysis is noted and microbiology reveals the patient's urine culture is E. c connor, which is sensitive to Bactrim. The blood cultures are reported to be negative. Review of the c reatinine, the patient's creatinine normal in the past all along. ASSESSMENT AND PLAN: After Dr. Angus Peña's note is reviewed, this is a 76-year-old female with history of deep venous thrombosis, pulmonary emboli with hypertension, chronic obstructive lung disease, admitted with Esche richia coli urinary tract infection, pansensitive. Is ALLERGIC TO PENICILLIN, on aztreonam and doing better. May use Bactrim double strength p.o. b.i.d. to complete for 5 days as discussed with Dr. Hemal Peña. Gavino Esposito MD cc: [id number] TT: 11/17/2016 14:46:10 Confirmation # [id number] Dictation # [id number] an
[2016-11-17 17:16] VITALS: BP 126/78; PULSE 96; RESP 18; TEMP 98.1; O2SAT 99
== END 2016-11-17 18:44 | DRG 689 ==
LOC: ED 17:43 → ERH 21:45 → 2RSO 11-14 01:05 → OBSVTOIN 11-14 09:34 → 5RSO 11-16 20:20
PROVIDERS: ADMIT Family Medicine; ATTEND Family Medicine
PROC: 02HV33Z Insertion of Infusion Device into Superior Vena Cava, Percutaneous Approach (ICD-10-PCS; principal; 2016-11-16)
PROC: B54NZZA Ultrasonography of Left Upper Extremity Veins, Guidance (ICD-10-PCS; 2016-11-16)
DX: N39.0 Urinary tract infection, site not specified (principal); G92 Toxic encephalopathy; I69.351 Hemiplegia and hemiparesis following cerebral infarction affecting right dominant side; E87.1 Hypo-osmolality and hyponatremia; M48.50XA Collapsed vertebra, not elsewhere classified, site unspecified, initial encounter for fracture; F03.90 Unspecified dementia, unspecified severity, without behavioral disturbance, psychotic disturbance, mood disturbance, and anxiety; J44.9 Chronic obstructive pulmonary disease, unspecified; E86.0 Dehydration; E87.6 Hypokalemia; B96.20 Unspecified Escherichia coli [E. coli] as the cause of diseases classified elsewhere; I10 Essential (primary) hypertension; Z86.718 Personal history of other venous thrombosis and embolism; G47.00 Insomnia, unspecified; Z86.711 Personal history of pulmonary embolism; Z88.0 Allergy status to penicillin

== ENCOUNTER 2017-01-07 21:02 | Inpatient (IN) | payer MEDICAID, OTHER ==
[2017-01-07 21:10] VITALS: BMI 20.2
--- NOTE | 2017-01-07 21:33 | ED PDOC ---
Arrival/HPI - General Chief Complaint: Shortness Of Breath Time Seen by Provider: 01/07/17 21:20 - History of Present Illness Narrative History of Present Illness (Text): 01/07/17 21:32 Patient is a 76 y/o F with hx of dementia, htn, copd, dvt, and pe, on coumadin, presenting with complaint of shortness of breath. Patient reports pain "all over" and shortness of breath. She is a poor historian and family cannot provide additional list of medical problems or medications. They report that patient has had numerous recent hospitalizations- with last one at [place] for +blood cultures with discharge <1 week ago. They report that patient has been in declining health over the last 3 weeks and has worsening dementia, generalized weakness, and depression as is now essentially wheelchair bound. POA: León Gray Past Medical History - Infectious Disease Hx of Infectious Diseases: None - Tetanus Immunization Tetanus Immunization: Unknown - Past Medical History Past Medical History: Unable to Obtain - Cardiac Hx Cardiac Disorders: Yes Hx Congestive Heart Failure: Yes Hx Hypertension: Yes - Pulmonary Hx Respiratory Disorders: Yes Hx Chronic Obstructive Pulmonary Disease (COPD): Yes - Neurological Hx Neurological Disorder: No - HEENT Hx HEENT Disorder: Yes Hx Cataracts: Yes - Renal Hx Renal Disorder: No - Endocrine/Metabolic Hx Endocrine Disorders: No - Hematological/Oncological Hx Blood Disorders: No - Integumentary Hx Dermatological Disorder: No - Musculoskeletal/Rheumatological Hx Musculoskeletal Disorders: Yes Hx Back Pain: Yes Hx Falls: Yes Hx Fractures: Yes (left hip) - Gastrointestinal Hx Gastrointestinal Disorders: No - Genitourinary/Gynecological Hx Genitourinary Disorders: Yes Hx Incontinence: Yes - Psychiatric Hx Psychophysiologic Disorder: No Hx Substance Use: No - Past Surgical History Past Surgical History: Unable to Obtain - Surgical History Hx Musculoskeletal Surgery: Yes (3 hip replacements as per grandson) - Anesthesia Hx Anesthesia: Yes Hx Anesthesia Reactions: No - Suicidal Assessment Feels Threatened In Home Enviroment: No Family/Social History Family/Social History: Unknown Family HX Smoking Status: Former Smoker Hx Alcohol Use: Yes Hx Substance Use: No Hx Substance Use Treatment: No Allergies/Home Meds Allergies/Adverse Reactions: Allergies Penicillins Allergy (Intermediate, Verified 11/13/16 18:21) SHORTNESS OF BREATH pentazocine lactate [From Talwin] Allergy (Verified 11/13/16 18:21) SHORTNESS OF BREATH Home Medications: Home Meds Medication Instructions Recorded Confirmed Ciprofloxacin [Cipro] 500 mg PO Q12H 01/07/17 01/07/17 Metronidazole [Flagyl] 500 mg PO Q8H 01/07/17 01/07/17 Warfarin [Coumadin] mg PO DAILY 01/07/17 Review of Systems - Review of Systems Constitutional: Fatigue, Weight Change. absent: Fevers Eyes: absent: Vision Changes ENT: absent: Hearing Changes Respiratory: SOB. absent: Cough, Sputum, Wheezing Cardiovascular: Palpitations. absent: Chest Pain, Edema, Calf Pain, VIVEROS, Orthopnea, Syncope Gastrointestinal: absent: Abdominal Pain, Constipation, Diarrhea, Nausea, Vomiting Genitourinary Female: absent: Dysuria Neurological: absent: Headache, Focal Weakness Psychiatric: Depression. absent: Suicidal Ideation Physical Exam Vital Signs Temp Pulse Resp BP Pulse Ox 01/07/17 23:18 99 H 19 136/84 99 01/07/17 21:26 24 96 01/07/17 21:10 98.6 F 109 H 20 126/79 98 Temperature: Afebrile Blood Pressure: Normal Pulse: Tachycardic Respiratory Rate: Tachypneic Appearance: Positive for: Well-Appearing, Non-Toxic, Comfortable Pain Distress: None Mental Status: Positive for: Alert and Oriented X 3, other (cachetic) - Systems Exam Head: Present: Atraumatic, Normocephalic Pupils: Present: PERRL Mouth: Present: Moist Mucous Membranes Respiratory/Chest: Present: Clear to Auscultation, Good Air Exchange. No: Respiratory Distress Cardiovascular: Present: Other (irregularly irregular) Abdomen: No: Tenderness, Distention, Rebound, Guarding Back: Present: Normal Inspection Lower Extremity: Present: Other (moving extremities x 4) Neurological: Present: GCS=15, CN II-XII Intact, Speech Normal Psychiatric: Present: Alert, Oriented x 3 Medical Decision Making ED Course and Treatment: 01/07/17 21:50 EKG shows atrial fibrillation at 110bpm (family reports that this is known condition) 01/07/17 22:32 Cxray limited by body position but shows patchy R sided infiltrate. Patient is tachycardic with elevated lactate. Code sepsis called. 01/07/17 22:47 Patient has elevated wbc, tachycardia and elevated lactate. Code sepsis called and antibiotics and fluids given. INR elevated to 1.57. PE considered in differential but less likely due to current anticoagulation and cxray result. Patient has multiple electrolyte abnormalities and replacement ordered. Trop negative but BNP elevated. IVF thought more necessary due to pneumonia and will monitor respiratory status. However likely component of chf. Patient is in atrial fibrillation and reports hx of, but no b-david or medication that I can see. Will treat underlying sepsis and believe that will help the tachycardia (current HR:103) Will speak to Dr. Foley, covering for Dr. Peña. 01/07/17 22:53 01/07/17 23:28 - Lab Interpretations Lab Results: 01/07/17 21:35 01/07/17 21:35 Lab Results 01/07/17 21:50: Urine Color Yellow, Urine Appearance Clear, Urine pH 6.0, Ur Specific [place] 1.025, Urine Protein 30 H, Urine Glucose (UA) 250 H, Urine Ketones Negative, Urine Blood Moderate H, Urine Nitrate Negative, Urine Bilirubin Negative, Urine Urobilinogen 0.2, Ur Leukocyte Esterase Negative, Urine RBC 5 - 10, Urine WBC 0 - 2, Ur Epithelial Cells 4 - 5, Hyaline Casts 0 - 2 01/07/17 21:35: pO2 63 H, VBG pH 7.43, VBG pCO2 29.0 L, VBG HCO3 19.2 L, VBG Total CO2 20.1 L, VBG O2 Sat (Calc) 94.6 H, VBG Base Excess -3.7 L, VBG Potassium 3.6, Sodium 133.0, Chloride 103.0, Glucose 206 H, Lactate 2.4 H, FiO2 21.0, Venous Blood Potassium 3.6 01/07/17 21:35: Sodium 130 L, Chloride 106, Potassium 3.4 L, Carbon Dioxide 18 L , Anion Gap 9 L, BUN 12, Creatinine 0.6, Est GFR ( Amer) > 60, Est GFR ( Non-Af Amer) > 60, Random Glucose 185 H, Calcium 7.8 L, Phosphorus 1.9 L, Magnesium 1.7, Total Bilirubin 0.4, AST 48 H, ALT 34, Alkaline Phosphatase 123, Total Creatine Kinase 46, Troponin I 0.04 D, NT-Pro-B Natriuret Pep 5030 H, Total Protein 5.4 L, Albumin 2.6 L, Globulin 2.9, Albumin/Globulin Ratio 0.9 L 01/07/17 21:35: PT 17.0 H, INR 1.57 H, APTT 35.8 H 01/07/17 21:35: WBC 12.7 H D, RBC 4.98, Hgb 14.6, Hct 41.8, MCV 83.9, MCH 29.3, MCHC 34.9, RDW 19.1 H, Plt Count 235, MPV 8.9, Gran % 83.6 H, Lymph % (Auto) 9.6 L, [place] % (Auto) 6.5 H, Eos % (Auto) 0.1 L, Baso % (Auto) 0.2, Gran # 10.59 H, Lymph # 1.2, [place] # 0.8 H, Eos # 0.0, Baso # 0.02 - RAD Interpretation Radiology Orders: 01/07/17 21:28 CHEST PORTABLE [RAD] Stat - Medication Orders Current Medication Orders: Vancomycin HCl (Vancomycin 1gm) 1 gm in 250 mls @ 167 mls/hr IVPB STAT STA PRN Reason: Protocol Stop: 01/08/17 00:03 Last Admin: 01/07/17 22:49 Dose: 167 mls/hr Meropenem 1g/NS 100mL IVPB (Meropenem 1g/Ns 100ml Ivpb) 1 gm in 100 mls @ 100 mls/hr IVPB STAT STA PRN Reason: Protocol Stop: 01/07/17 23:41 Discontinued Medications Sodium Chloride 1,500 ml/ IV (SUPPLIES) 1,500 mls @ 2,726.64 mls/hr IV ONCE ONE PRN Reason: 60 ML/KG/HR Stop: 01/07/17 22:34 Last Admin: 01/07/17 22:50 Dose: 2,726.64 mls/hr Potassium Phos/Sodium Phos (Neutra-Phos) 1 pkt PO STAT STA Stop: 01/07/17 22:12 Last Admin: 01/07/17 22:31 Dose: 1 pkt Disposition/Present on Arrival - Present on Arrival Any Indicators Present on Arrival: No History of DVT/PE: No History of Uncontrolled Diabetes: No Urinary Catheter: No History of Decub. Ulcer: No History Surgical Site Infection Following: None - Disposition Have Diagnosis and Disposition been Completed?: Yes Diagnosis: Pneumonia Disposition: HOSPITALIZED Disposition Time: 22:54 Patient Plan: Admission Patient Problems: Current Active Problems Problem Status Onset Pneumonia Acute Condition: FAIR
[2017-01-07 21:46] LABS: ADD MANUAL DIFF? NO
[2017-01-07 21:52] LABS: BASO # 0.02 K/mm3 (0.0-2.0); BASO % 0.2 % (0.0-3.0); EOS % 0.1 % (1.5-5.0); GRAN # 10.59 (1.4-6.5); GRAN % 83.6 % (50.0-68.0); HEMATOCRIT 41.8 % (36.0-48.0); LYMPH # 1.2 (1.2-3.4); LYMPH % 9.6 % (22.0-35.0); MEAN CELL VOLUME 83.9 fL (80.0-105.0); MEAN CORPUSCULAR HEMOGLOBIN 29.3 pg (25.0-35.0); MEAN CORPUSCULAR HGB CONC 34.9 g/dl (31.0-37.0); MEAN PLATELET VOLUME 8.9 fl (7.0-11.0); MONO # 0.8 (0.1-0.6); MONO % 6.5 % (1.0-6.0); PLATELET COUNT 235 10^3/uL (120.0-450.0); RED CELL DISTRIBUTION WIDTH 19.1 % (11.5-14.5); WHITE BLOOD COUNT 12.7 10^3/ul (4.5-11.0)
[2017-01-07 21:53] LABS: VENOUS BLOOD GAS BASE EXCESS -3.7 mmol/L (0.0-2.0); VENOUS BLOOD PH 7.43 (7.32-7.43)
[2017-01-07 22:06] LABS: ALB/GLOB RATIO 0.9 (1.1-1.8); ALKALINE PHOSPHATASE 123 U/L (38-133); ALT/SGPT 34 U/L (7-56); AST/SGOT 48 U/L (15-39); BILIRUBIN,TOTAL 0.4 mg/dL (0.2-1.3); BLOOD UREA NITROGEN 12 mg/dL (7-21); CALCIUM 7.8 mg/dL (8.4-10.5); CARBON DIOXIDE 18 mmol/L (21-33); CHLORIDE 106 mmol/L (98-107); GFR AFRICAN-AMERICAN > 60; GLUCOSE,RANDOM 185 mg/dL (70-110); INR 1.57 (0.93-1.08); MAGNESIUM 1.7 mg/dL (1.7-2.2); PARTIAL THROMBOPLASTIN TIME 35.8 Seconds (23.7-30.8); PHOSPHOROUS 1.9 mg/dL (2.5-4.5); POTASSIUM 3.4 mmol/L (3.6-5.0); SODIUM 130 mmol/L (132-148); TOTAL PROTEIN 5.4 g/dL (5.8-8.3)
[2017-01-07] MEDS ORDERED: Potassium & Sodium Phosphate PO STA (22:11)
[2017-01-07 22:14] LABS: URINE BILIRUBIN NEGATIVE (NEGATIVE); URINE BLOOD MODERATE (NEGATIVE); URINE GLUCOSE (UA) 250 mg/dL (NEGATIVE); URINE KETONE NEGATIVE (NEGATIVE); URINE LEUKOCYTE ESTERASE NEGATIVE Leu/uL (NEGATIVE); URINE PROTEIN 30 mg/dL (<30 mg/dL); URINE UROBILINOGEN 0.2 E.U./dL (<1 E.U./dL)
[2017-01-07 22:16] LABS: TROPONIN I 0.04 ng/mL
[2017-01-07 22:21] LABS: URINE APPEARANCE CLEAR (CLEAR); URINE COLOR YELLOW (YELLOW)
[2017-01-07 22:26] LABS: URINE WBC 0 - 2 /hpf (0-6)
[2017-01-07] MEDS ORDERED: Vancomycin 1gm in NS 250ml 1 GM/250 ML BAG IVPB STA (22:34)
[2017-01-07] MEDS ORDERED: Piperacillin/Tazobact 3.375 gm 100 ML IVPB STA (22:34)
[2017-01-07] MEDS ORDERED: Meropenem 1g/NS 100mL IVPB 1 GM/100 ML PIGGYBACK IVPB STA (22:42)
[2017-01-08 02:04] LABS: VENOUS BLOOD GAS BASE EXCESS -9.6 mmol/L (0.0-2.0)
[2017-01-08 02:25] LABS: VENOUS BLOOD PH 7.19 (7.32-7.43)
--- NOTE | 2017-01-08 04:52 | PCM.SEPTIC ---
Sepsis Progress Note - Reassessment Type Date of Evaluation: 01/08/17 Time of Evaluation: 04:30 Reassessment Type: Non-invasive reassessment - Non Invasive Reassessment Were the most recent vital sign reviewed: Yes Vital Sign (Latest): Temp Pulse Resp BP Pulse Ox 97.6 F 81 18 135/79 99 01/08/17 02:26 01/08/17 02:26 01/08/17 02:26 01/08/17 02:01/07/17 23:18 Cardiovascular: Yes: Tachycardia, Irregularly Irregular. No: Murmur Respiratory: No: Respiratory Distress Capillary Refill: Normal (Less than 2 sec) Skin: Warm, Dry, Ecchymosis
[2017-01-08] MEDS ORDERED: Vancomycin 1gm in NS 250ml 250 ML IVPB SCH (07:00)
[2017-01-08] MEDS ORDERED: Levalbuterol 0.63 MG/3 ML Inhal Soln UD IH PRN (07:41)
[2017-01-08] MEDS: Insulin Reg-MEDIUM-Coverage SC SCH ×4 (08:00→21:44)
[2017-01-08] MEDS: Sodium Chloride 0.45% 1,000 ML IV SCH (08:13)
--- NOTE | 2017-01-08 08:14 | HP ---
I know the patient very well from house calls. She recently just got released from a rehab center and she went home and after a few days she was sent to the Emergency Room. She was coughing and short of breath. It seems like she is having pneumonia at this time. She is very weak, not talking that well. She was at [facility] for positive blood cultures less than a week ago and now she is back here in the hospital. PAST MEDICAL HISTORY: Dementia, hypertension, COPD, DVT, PE, on Coumadin. Difficult to get a lot of history from her. Back pain, history of falls, left hip fracture with ORIF, incontinence, 3 hip replacements as per the grandson. FAMILY HISTORY: Hypertension in the family. SOCIAL HISTORY: A former smoker. She does still drink alcohol, no substance abuse. ALLERGIES: PENICILLIN AND TALWIN. MEDICATIONS: She takes Cipro, Flagyl, Coumadin at home. REVIEW OF SYSTEMS: No acute vision or hearing changes, but old. Lethargic. She is short of breath, mild cough. No chest pain, no swelling. No abdominal pain. No problems urinating. No headache, no dizziness. She is depressed, but not suicidal. No anxious. PHYSICAL EXAMINATION: VITAL SIGNS: She has a 98.6 temp, 109 pulse, 20 respiratory rate, 126/79 blood pressure, 98% O2 sat on room air. HEENT: Head is atraumatic, normocephalic. Extraocular muscles are intact. Pupils equal, reactive to light. GENERAL: She is alert, not talking much. You have to really encourage her just to say hello. She looks a little lethargic. LUNGS: Have decreased breath sounds bilaterally, poor exchange. HEART: Irregularly irregular Coumadin for the atrial fibrillation. ABDOMEN: Soft, nontender, positive bowel sounds, no guarding, no rebound, no CVA tenderness. EXTREMITIES: Mildly contracted, very weak all 4 extremities. NEUROLOGIC: GCS is 15. Cranial nerves II-XII grossly intact. Alert. EKG showed atrial fib at 110. On chest x-ray, it showed a patchy right-sided infiltrate. BLOOD TESTS: White count 12.7, 14.6 hemoglobin, 41.8 hematocrit with 235 platelets. INR 1.57. I will have to increase her Coumadin. She was a 7.19 acidotic pH. Sodium 130, potassium 3.4. We will replace the potassium. BUN 12 , creatinine 0.6, GFR is greater than 60, sugar is 185. We will give her some coverage. Calcium 7.8, phosphorus 1.9, total bili is 0.4, AST is 48, ALT is 34 , alk phos 123. Troponin was 0.04, intermittent. Will check more troponins. BNP was 5030. I am going to get cardiology in. She might need to be on Lasix. Total protein is 5.4. Urine was moderate blood. She is currently on IV fluids, warfarin, potassium replacement, IV Merrem. She is ALLERGIC TO PENICILLIN. She got a dose of vancomycin. We will call in infectious disease, pulmonary and cardiology. We will check her troponins. She is here for pneumonia, congestive heart failure. We will order physical therapy. Angus Peña DO cc: [id number] TT: 01/08/2017 08:13:39 en MTDD
--- NOTE | 2017-01-08 08:21 | RAD ---
HISTORY: shortness of breath COMPARISON: 11/13/2016 FINDINGS: LUNGS: There are persistent low lung volumes. PLEURA: There are small pleural effusions. No pneumothorax. CARDIOVASCULAR: The heart is normal in size. Atherosclerotic aortic arch calcifications are present. OSSEOUS STRUCTURES: There is a severe S-shaped scoliosis. VISUALIZED UPPER ABDOMEN: Normal. OTHER FINDINGS: None. IMPRESSION: Persistent low lung volumes and small pleural effusions.
[2017-01-08] MEDS: Levalbuterol 0.63 MG/3 ML Inhal Soln UD IH SCH ×3 (08:34→19:38)
--- NOTE | 2017-01-08 08:35 | CON ---
DATE: 01/08/2017 REASON FOR CONSULTATION: Pneumonia. REFERRING PHYSICIAN: Dr. Angus Peña History is obtained via extensive discussion with Dr. Peña. I have also reviewed the chart at length. The patient does not appear to be an adequate historian. The patient is a chronically ill 76-year-old female, appearing much older than her stated age, with a history of chronic obstructive pulmonary disease, venous thromboembolism in the past (on Coumadin), hypertension, dementia, who presents to [facility] with increasing shortness of breath for the past 2 days. The patient denies cough or sputum production. There is also no history of chest pain, coughing up of blood or chest pain -- made worse with deep respirations. There is no history of temperatures, chills or infectious exposure. There is no history of night sweats. There is a history of weight loss with decreased appetite over the past few months. No history of leg or calf pains. No history of syncope or diaphoresis. No history of recent travel or trauma. REVIEW OF SYSTEMS: No history of nausea, vomiting or diarrhea. No acute urinary symptoms. Rest is negative. ALLERGIES: PENICILLIN. SOCIAL HISTORY: Positive for tobacco, negative for alcohol. FAMILY HISTORY: No inheritable diseases. HOME MEDICATIONS: Include Flagyl, ciprofloxacin, Coumadin. PHYSICAL EXAMINATION: GENERAL: The patient is not short of breath at rest. She is not using accessory muscles for breathing. VITAL SIGNS: Temperature is 98.0, pulse on the monitor is 88, respiratory rate 18, blood pressure 137/92. Oxygen saturation on nasal cannula is 99%. HEENT: Normocephalic, atraumatic. No JVD. CARDIOVASCULAR: Systolic ejection murmur at the lower left sternal border. No S3 gallop. LUNGS: Decreased breath sounds at the bases. Minimal bilateral rhonchi. No wheezing. EXTREMITIES: No clubbing, cyanosis, or edema. Calves are nontender to palpation. GASTROINTESTINAL: Abdomen is soft, nontender, nondistended. Bowel sounds are positive. SKIN: No acute rash. NEUROLOGIC: Limited at the present time. PERTINENT LABORATORY DATA: Chest x-ray was done yesterday and reviewed. The chest x-ray is a very poor portable film. It is also very rotated. There appears to be a new patchy infiltrate noted in the right lower lobe. CBC: White count 12.7, hemoglobin 14.6, hematocrit 41.8, platelets of 235. INR 1.57. Complete metabolic profile: Sodium 130, potassium 3.4, carbon dioxide 18 , anion gap 9, glucose 185, calcium 7.8, phosphorus 1.9, AST 48, troponin 0.04, B-type natriuretic peptide 5030, total protein 5.4, albumin 2.6. Rest of the metabolic profile is within normal limits. IMPRESSION: 1. Right lower lobe pneumonia. 2. Chronic obstructive pulmonary disease. 3. Increased B-type natriuretic peptide -- rule out congestive heart failure. 4. Multiple electrolyte abnormalities. PLAN: Again, I did discuss the case with Dr. Peña at length. I have also reviewed the chart at length. The patient presents to [facility] with main complaint of shortness of breath for the past 2 days. There are no other new significant pulmonary symptoms reported. I did review the chest x- ray as above. Again, the x-ray is a very poor film -- but appears to show a new right lower lobe infiltrate. Haro cultures have been ordered and will be analyzed when feasible. The patient has been started on antibiotic therapy -- as per infectious disease. Input by Dr. Garcia is noted. Procalcitonin has also been ordered. On physical exam, the patient is in mild bronchospasm. There is no significant alveolar-arterial gradient. Oxygen saturation on nasal cannula is 99%. I will start the patient on Xopenex nebulizer treatments this morning. I will also start aspiration precautions. Cardiology evaluation with has been ordered. The patient does appear improved this morning -- compared to the past few days. I would also like to repeat the chest x-ray -- in a few days -- for comparison. Overall status of this patient does appear poor. Again, I did discuss the above with Dr. Peña. Thank you very much for this pulmonary consultation. Junior Hollins MD cc: [id number] TT: 01/08/2017 08:34:52 Confirmation # [id number] Dictation # [id number] en MTDD
[2017-01-08] MEDS: Vancomycin 1gm in NS 250ml 1 GM/250 ML BAG IVPB SCH ×2 (08:36→20:01)
[2017-01-08] MEDS: Potassium Chloride 20 mEq ER Tab PO SCH ×2 (08:37→09:09)
[2017-01-08 08:49] LABS: VENOUS BLOOD GAS BASE EXCESS -5.2 mmol/L (0.0-2.0); VENOUS BLOOD PH 7.38 (7.32-7.43)
--- NOTE | 2017-01-08 10:31 | CP.PCM.CON ---
History of Present Illness - History of Present Illness History of Present Illness: 76 year old female with PMH of HTN, COPD, DVT and PE on anticoagulation, cataracts, history of left hip fracture S/P arthroplasty, history of urinary incontinence was brought in to [facility] because of shortness of breath and cough. She has been admitted recently in other hospitals for the same complaints and the last discharge was less than a week ago. Currently the patient is also complaining of generalized malaise, but denies fever or chills, no nausea or vomiting, no chest pain, no chest tightness, no abdominal pain, no sore throat, no diarrhea, no dysuria. In the ED, CXR shows low lung volumes and small pleural effusions. Infectious Diseases consult is requested to further evaluate and manage. Review of Systems - Review of Systems All systems: reviewed and no additional remarkable complaints except (as per HPI ) Past Patient History - Infectious Disease Hx of Infectious Diseases: None - Tetanus Immunizations Tetanus Immunization: Unknown - Past Social History Smoking Status: Former Smoker - CARDIAC Hx Cardiac Disorders: Yes Hx Congestive Heart Failure: Yes Hx Hypertension: Yes - PULMONARY Hx Respiratory Disorders: Yes Hx Chronic Obstructive Pulmonary Disease (COPD): Yes - NEUROLOGICAL Hx Neurological Disorder: No - HEENT Hx HEENT Problems: Yes Hx Cataracts: Yes - RENAL Hx Chronic Kidney Disease: No - ENDOCRINE/METABOLIC Hx Endocrine Disorders: No - HEMATOLOGICAL/ONCOLOGICAL Hx Blood Disorders: No - INTEGUMENTARY Hx Dermatological Problems: No - MUSCULOSKELETAL/RHEUMATOLOGICAL Hx Musculoskeletal Disorders: Yes Hx Back Pain: Yes Hx Falls: Yes Hx Fractures: Yes (left hip) - GASTROINTESTINAL Hx Gastrointestinal Disorders: No - GENITOURINARY/GYNECOLOGICAL Hx Genitourinary Disorders: Yes Hx Incontinence: Yes - PSYCHIATRIC Hx Psychophysiologic Disorder: No - SURGICAL HISTORY Hx Musculoskeletal Surgery: Yes (3 hip replacements as per grandson) - ANESTHESIA Hx Anesthesia: Yes Hx Anesthesia Reactions: No Meds Allergies/Adverse Reactions: Allergies Allergy/AdvReac Type Severity Reaction Status Date / Time Penicillins Allergy Intermediate SHORTNESS Verified 11/13/16 18:21 OF BREATH pentazocine lactate Allergy SHORTNESS Verified 11/13/16 18:21 [From Aleksandr] OF BREATH - Medications Medications: Current Medications Sodium Chloride (Sodium Chloride 0.45%) 1,000 mls @ 30 mls/hr IV .Q24H LOIS Potassium Chloride (K-Dur 20 Meq Er Tab) 20 meq PO BRK LOIS Warfarin Sodium (Coumadin) 2 mg PO 1800 LOIS PRN Reason: Protocol Physical Exam - Constitutional Appears: Other (ill-appearing, mouth breathing but only slightly tachypneic) - Head Exam Head Exam: NORMAL INSPECTION - ENT Exam ENT Exam: Mucous Membranes Moist - Neck Exam Neck exam: Negative for: Lymphadenopathy, Meningismus - Respiratory Exam Respiratory Exam: Decreased Breath Sounds (with crackles noted) - Cardiovascular Exam Cardiovascular Exam: +S1, +S2 - GI/Abdominal Exam GI & Abdominal Exam: Soft. absent: Tenderness Results - Vital Signs Recent Vital Signs: Last Vital Signs Temp 98 F 01/08/17 05:33 Pulse 102 H 01/08/17 05:34 Resp 18 01/08/17 05:33 BP 137/92 H 01/08/17 05:33 Pulse Ox 99 01/07/17 23:18 - Labs Result Diagrams: 01/07/17 21:35 01/07/17 21:35 Labs: Laboratory Results - last 24 hr 01/08/17 01:45 pO2 35 VBG pH 7.19 L* VBG pCO2 49.0 VBG HCO3 18.7 L VBG Total CO2 20.2 L VBG O2 Sat (Calc) 63.3 VBG Base Excess -9.6 L VBG Potassium 3.6 Sodium 135.0 Chloride 107.0 Glucose 101 Lactate 3.0 H FiO2 21.0 Venous Blood Potassium 3.6 Assessment & Plan - Assessment and Plan (Free Text) Plan: Assessment Consider sepsis due to right lower lobe healthcare-associated pneumonia, on top of acute on chronic congestive heart failure HTN COPD DVT and PE on anticoagulation cataracts history of left hip fracture S/P arthroplasty history of urinary incontinence Plan Started patient on Vancomycin and Merrem (patient has PCN allergy but was able to tolerate the dose that was given yesterday) pending blood cx, sputum, PCT; reviewed CXR Will discuss with Dr. Hollins Will follow clinical response
[2017-01-08 10:55] LABS: ADD MANUAL DIFF? NO
[2017-01-08 11:08] LABS: ALKALINE PHOSPHATASE 113 U/L (38-133); ALT/SGPT 32 U/L (7-56); AST/SGOT 32 U/L (15-39); BILIRUBIN,TOTAL 0.5 mg/dL (0.2-1.3); BLOOD UREA NITROGEN 10 mg/dL (7-21); CALCIUM 7.6 mg/dL (8.4-10.5); CARBON DIOXIDE 18 mmol/L (21-33); CHLORIDE 109 mmol/L (98-107); GFR AFRICAN-AMERICAN > 60; GLUCOSE,RANDOM 84 mg/dL (70-110); MAGNESIUM 1.7 mg/dL (1.7-2.2); POTASSIUM 3.5 mmol/L (3.6-5.0); SODIUM 135 mmol/L (132-148); TOTAL PROTEIN 5.5 g/dL (5.8-8.3)
--- NOTE | 2017-01-08 11:10 | CON ---
DATE: 01/08/2017 HISTORY OF PRESENT ILLNESS: The patient is a 76-year-old woman who presents from subacute rehab with dyspnea. PAST MEDICAL HISTORY: Notable for pneumonia. She was on Coumadin for atrial fibrillation in the pas t. The patient complains of malaise, but denies chest pain. Historically, the patient is a poor histori an. SOCIAL HISTORY: Unreliable. REVIEW OF SYSTEMS: Unreliable. PHYSICAL EXAMINATION: VITAL SIGNS: Blood pressure 139/80, the heart rate is 127, atrial fibrillation. NECK: Negative JVD. LUNGS: Decreased breath sounds bilaterally. HEART: Reveals S1, S2 with a soft systolic ejection murmur. EXTREMITIES: Without edema. EKG shows atrial fibrillation with nonspecific ST-T changes. LABORATORY DATA: White count is 12.7. BUN and creatinine are unremarkable. Potassium is 3.4 with a glucose of 185. Troponin is 0.04. IMPRESSION: 1. Pneumonia. 2. Atrial fibrillation with increased heart rate. 3. Mild congestive heart failure. 4. Weakness. 5. Diabetes mellitus. PLAN: Given these findings, we will start the patient on IV Cardizem. The patient is already on Cou madin with an INR of 1.5. Echocardiogram has been ordered. Norbert Wong MD cc: [id number] TT: 01/08/2017 11:09:02 Confirmation # [id number] Dictation # [id number] yojana
[2017-01-08] MEDS: diltiaZEM IVPB 100mg in NS 100 ML IV PRN (12:00)
[2017-01-08 12:30] LABS: BASO # 0.05 K/mm3 (0.0-2.0); BASO % 0.4 % (0.0-3.0); EOS % 0.2 % (1.5-5.0); GRAN # 11.16 (1.4-6.5); GRAN % 84.3 % (50.0-68.0); HEMATOCRIT 42.6 % (36.0-48.0); LYMPH # 0.9 (1.2-3.4); LYMPH % 6.9 % (22.0-35.0); MEAN CELL VOLUME 84.7 fL (80.0-105.0); MEAN CORPUSCULAR HEMOGLOBIN 29.2 pg (25.0-35.0); MEAN CORPUSCULAR HGB CONC 34.5 g/dl (31.0-37.0); MEAN PLATELET VOLUME 8.8 fl (7.0-11.0); MONO # 1.1 (0.1-0.6); MONO % 8.2 % (1.0-6.0); PLATELET COUNT 268 10^3/uL (120.0-450.0); RED CELL DISTRIBUTION WIDTH 20.6 % (11.5-14.5); WHITE BLOOD COUNT 13.2 10^3/ul (4.5-11.0)
--- NOTE | 2017-01-08 12:46 | CP.PCM.PN ---
Subjective - Date & Time of Evaluation Date of Evaluation: 01/08/17 Time of Evaluation: 12:42 - Subjective Subjective: Patient has very poor veins,needs iv access. Objective - Vital Signs/Intake and Output Vital Signs (last 24 hours): Temp Pulse Resp BP Pulse Ox 97.7 F 128 H 18 129/77 99 01/08/17 12:00 01/08/17 12:00 01/08/17 12:00 01/08/17 12:00 01/07/17 23:18 Intake and Output: 01/08/17 01/08/17 06:59 18:59 Intake Total 750 Balance 750 - Medications Medications: Current Medications Diltiazem HCl (Cardizem) 60 mg PO TID LOIS Furosemide (Lasix) 20 mg IVP DAILY [facility] Last Admin: 01/08/17 09:08 Dose: 20 mg Sodium Chloride (Sodium Chloride 0.45%) 1,000 mls @ 30 mls/hr IV .Q24H [facility] Last Admin: 01/08/17 08:13 Dose: 30 mls/hr Vancomycin HCl (Vancomycin 1gm) 1 gm in 250 mls @ 167 mls/hr IVPB Q12H LOIS PRN Reason: Protocol Last Admin: 01/08/17 08:36 Dose: 167 mls/hr Meropenem 1g/NS 100mL IVPB (Meropenem 1g/Ns 100ml Ivpb) 1 g in 100 mls @ 100 mls/hr IVPB Q8 LOIS PRN Reason: Protocol diltiaZEM IVPB 100mg in NS (Cardizem 100mg In Ns) 100 mls @ 5 mls/hr IV .Q20H PRN; Protocol; 5 MG/HR PRN Reason: TITRATE PER MD ORDER Last Admin: 01/08/17 12:00 Dose: 5 mg/hr, 5 mls/hr Insulin Human Regular (Humulin R Med) 0 units SC ACHS LOIS PRN Reason: Protocol Last Admin: 01/08/17 08:00 Dose: Not Given Levalbuterol HCl (Xopenex) 0.63 mg IH [id number] [facility] Last Admin: 01/08/17 08:34 Dose: 0.63 mg Levalbuterol HCl (Xopenex) 0.63 mg IH Q2 PRN PRN Reason: Shortness of Breath Potassium Chloride (K-Dur 20 Meq Er Tab) 20 meq PO BRK LOIS Last Admin: 01/08/17 09:09 Dose: 20 meq Warfarin Sodium (Coumadin) 2 mg PO 1800 LOIS PRN Reason: Protocol - Labs Labs: 01/08/17 07:00 01/08/17 07:00 PT 17.0 Seconds (9.9-11.8) H 01/07/17 21:35 INR 1.57 (0.93-1.08) H 01/07/17 21:35 APTT 35.8 Seconds (23.7-30.8) H 01/07/17 21:35 - Constitutional Appears: No Acute Distress Assessment and Plan - Assessment and Plan (Free Text) Assessment: Poor venous access. Plan: Hep lock inserted in the L hand . # 24 angiocath used. Note; patient did not want a line in her neck.
[2017-01-08] MEDS ORDERED: Meropenem 1g/NS 100mL IVPB 100 ML IVPB SCH (14:00)
[2017-01-08] MEDS: PIGGYBACK IVPB SCH ×2 (14:11→21:47)
[2017-01-08] MEDS: MEROPENEM IVPB SCH ×2 (14:11→21:47)
[2017-01-08 16:28] LABS: VENOUS BLOOD GAS BASE EXCESS -5.1 mmol/L (0.0-2.0); VENOUS BLOOD PH 7.35 (7.32-7.43)
--- NOTE | 2017-01-08 17:51 | CARD ---
APPROVED REPORT EXAM: Two-dimensional and M-mode echocardiogram with Doppler and color Doppler. INDICATION Dyspnea 2D DIMENSIONS Left Atrium (2D)3.6 (1.6-4.0cm)IVSd1.3 (0.7-1.1cm) LVDd3.9 (3.9-5.9cm)PWd1.3 (0.7-1.1cm) LVDs2.5 (2.5-4.0cm)FS (%) 37.0 % LVEF (%)67.6 (>50%) M-Mode DIMENSIONS Aortic Root3.60 (2.2-3.7cm)Aortic Cusp Exc.1.30 (1.5-2.0cm) Aortic Valve AoV Peak Xoennffr204.0cm/[place] Peak GR.6mmHg Mitral Valve MV E Mdlrcefz02.0cm/sMV A Hqgrwhnp81.8cm/sE/A ratio2.6 TDI E/Lateral E'0.0E/Medial E'0.0 Tricuspid Valve TR Peak [id number]/sRAP LFGQMIQF10gkDhRF Peak Gr.15mmHg [id number] LEFT VENTRICLE The left ventricle is normal size. There is mild concentric left ventricular hypertrophy. The left ventricular function is normal. The left ventricular ejection fraction is within the normal range. There is normal LV segmental wall motion. Transmitral Doppler flow pattern is Grade I-abnormal relaxation pattern. No left ventricle thrombus noted on this study. RIGHT VENTRICLE The right ventricle is mildly dilated. There is normal right ventricular wall thickness. RV Systolic function is mildly to moderately reduced. ATRIA The left atrium size is normal. The right atrium is mildly dilated. AORTIC VALVE The aortic valve is mildly thickened but opens well. No aortic regurgitation is present. MITRAL VALVE The mitral valve is moderately thickened. TRICUSPID VALVE There is no pulmonary hypertension. GREAT VESSELS The aortic root displays severe sclerocalcific changes of the aortic root. PERICARDIAL EFFUSION There is a trace loculated anterior pericardial effusion. <Conclusion> The left ventricle is normal size. There is mild concentric left ventricular hypertrophy. The left ventricular function is normal. The left ventricular ejection fraction is within the normal range. Transmitral Doppler flow pattern is Grade I-abnormal relaxation pattern. The right ventricle is mildly dilated. RV Systolic function is mildly to moderately reduced.
--- NOTE | 2017-01-08 19:06 | CARD ---
APPROVED REPORT EKG Measurement Heart [id number] <Conclusion> Atrial fibrillation with rapid ventricular response Nonspecific ST and T wave abnormality, probably digitalis effect Abnormal ECG
[2017-01-08 21:45] LABS: VENOUS BLOOD GAS BASE EXCESS -4.9 mmol/L (0.0-2.0); VENOUS BLOOD PH 7.42 (7.32-7.43)
[2017-01-09] MEDS: Levalbuterol 0.63 MG/3 ML Inhal Soln UD IH SCH ×4 (01:42→19:41)
[2017-01-09] MEDS: diltiaZEM IVPB 100mg in NS 100 ML IV PRN (04:50)
[2017-01-09] MEDS: PIGGYBACK IVPB SCH ×3 (05:00→21:47)
[2017-01-09] MEDS: MEROPENEM IVPB SCH ×3 (05:00→21:47)
[2017-01-09] MEDS: Vancomycin 1gm in NS 250ml 1 GM/250 ML BAG IVPB SCH ×2 (06:28→20:08)
[2017-01-09 07:53] LABS: HEMATOCRIT 37.7 % (36.0-48.0); MEAN CELL VOLUME 83.4 fL (80.0-105.0); MEAN CORPUSCULAR HEMOGLOBIN 28.8 pg (25.0-35.0); MEAN CORPUSCULAR HGB CONC 34.5 g/dl (31.0-37.0); MEAN PLATELET VOLUME 8.7 fl (7.0-11.0); RED CELL DISTRIBUTION WIDTH 19.2 % (11.5-14.5); WHITE BLOOD COUNT 11.6 10^3/ul (4.5-11.0)
[2017-01-09 07:59] LABS: INR 2.07 (0.93-1.08)
[2017-01-09 08:03] LABS: VENOUS BLOOD GAS BASE EXCESS -3.9 mmol/L (0.0-2.0); VENOUS BLOOD PH 7.42 (7.32-7.43)
[2017-01-09] MEDS: Insulin Reg-MEDIUM-Coverage SC SCH ×4 (08:12→21:45)
[2017-01-09 08:23] LABS: ALB/GLOB RATIO 0.8 (1.1-1.8); ALKALINE PHOSPHATASE 87 U/L (38-133); ALT/SGPT 32 U/L (7-56); AST/SGOT 29 U/L (15-39); BILIRUBIN,TOTAL 0.6 mg/dL (0.2-1.3); BLOOD UREA NITROGEN 9 mg/dL (7-21); CALCIUM 7.5 mg/dL (8.4-10.5); CARBON DIOXIDE 18 mmol/L (21-33); CHLORIDE 111 mmol/L (98-107); GFR AFRICAN-AMERICAN > 60; GLUCOSE,RANDOM 100 mg/dL (70-110); SODIUM 136 mmol/L (132-148); TOTAL PROTEIN 4.6 g/dL (5.8-8.3)
--- NOTE | 2017-01-09 09:16 | PN ---
DATE: 01/09/2017 SUBJECTIVE: The patient appears comfortable this morning. She is not short of breath at rest. OBJECTIVE: VITAL SIGNS: Temperature is 98.9, pulse 85, respirations 18/20, blood pressure 106/65. Oxygen saturation on nasal cannula is 96%-98%. HEENT: Normocephalic, atraumatic. No JVD. CARDIOVASCULAR: Systolic ejection murmur at the lower left sternal border. No S3 gallop. LUNGS: Decreased breath sounds at the bases. Less rhonchi. No wheezing. EXTREMITIES: No clubbing, cyanosis, or edema. Calves are nontender to palpation. GASTROINTESTINAL: Abdomen is soft, nontender, nondistended. Bowel sounds are positive. SKIN: No acute rash. NEUROLOGIC: Limited at the present time. IMPRESSION: 1. Rule out right lower lobe pneumonia. 2. Chronic obstructive pulmonary disease. 3. Congestive heart failure. 4. Cardiac arrhythmias. 5. Multiple electrolyte abnormalities. PLAN: The patient appears more comfortable this morning. She is not short of breath at rest. She states she is feeling better overall. On physical exam, her bronchospasm is less. In addition, there is no alveolar arterial gradient. Oxygen saturation on nasal cannula is 96%-98%. I did review the laboratory data from yesterday. There is a negative procalcitonin noted. Again, as noted previously, the initial film was very poor in quality. I would continue with the antibiotic coverage as per infectious disease -- for now. Input by Dr. Garcia is noted. I will check a repeat chest x-ray - PA and lateral -- for closer evaluation. Cardiology evaluation with is also noted. Clinical status of the patient is certainly improved -- compared to the initial presentation. However, the overall status/prognosis of this patient remains poor. I will discuss the above with the attending physician. Junior Hollins MD cc: [phone] TT: 01/09/2017 09:15:40 Confirmation # [id number] Dictation # [id number] GLADIS
[2017-01-09] MEDS: Potassium Chloride 20 mEq ER Tab PO SCH (10:53)
[2017-01-09] MEDS: Sodium Chloride 0.45% 1,000 ML IV SCH (10:55)
--- NOTE | 2017-01-09 11:27 | CP.PCM.PN ---
Subjective - Date & Time of Evaluation Date of Evaluation: 01/09/17 Time of Evaluation: 10:00 - Subjective Subjective: Patient is still having some shortness of breath at rest but a little better, no chest pain, no fevers overnight. Objective - Vital Signs/Intake and Output Vital Signs (last 24 hours): Temp Pulse Resp BP Pulse Ox 98.9 F 85 20 106/65 96 01/09/17 05:50 01/09/17 05:50 01/09/17 05:50 01/09/17 05:50 01/09/17 05:50 Intake and Output: 01/09/17 01/09/17 06:59 18:59 Intake Total 1710 Balance 1710 - Medications Medications: Current Medications Diltiazem HCl (Cardizem) 60 mg PO TID [facility] Last Admin: 01/08/17 18:17 Dose: 60 mg Furosemide (Lasix) 20 mg IVP DAILY [facility] Last Admin: 01/08/17 09:08 Dose: 20 mg Sodium Chloride (Sodium Chloride 0.45%) 1,000 mls @ 30 mls/hr IV .Q24H [facility] Last Admin: 01/08/17 08:13 Dose: 30 mls/hr Vancomycin HCl (Vancomycin 1gm) 1 gm in 250 mls @ 167 mls/hr IVPB Q12H LOIS PRN Reason: Protocol Last Admin: 01/09/17 06:28 Dose: 167 mls/hr Meropenem 1g/NS 100mL IVPB (Meropenem 1g/Ns 100ml Ivpb) 1 g in 100 mls @ 100 mls/hr IVPB Q8 LOIS PRN Reason: Protocol Last Admin: 01/09/17 05:00 Dose: 100 mls/hr Insulin Human Regular (Humulin R Med) 0 units SC ACHS LOIS PRN Reason: Protocol Last Admin: 01/09/17 08:12 Dose: Not Given Levalbuterol HCl (Xopenex) 0.63 mg IH [id number] [facility] Last Admin: 01/09/17 08:39 Dose: 0.63 mg Levalbuterol HCl (Xopenex) 0.63 mg IH Q2 PRN PRN Reason: Shortness of Breath Potassium Chloride (K-Dur 20 Meq Er Tab) 20 meq PO BRK [facility] Last Admin: 01/08/17 09:09 Dose: 20 meq Warfarin Sodium (Coumadin) 2 mg PO 1800 LOIS PRN Reason: Protocol Last Admin: 01/08/17 18:17 Dose: 2 mg - Labs Labs: 01/09/17 07:39 01/09/17 07:39 PT 22.4 Seconds (9.9-11.8) H 01/09/17 07:39 INR 2.07 (0.93-1.08) H 01/09/17 07:39 APTT 35.8 Seconds (23.7-30.8) H 01/07/17 21:35 - Constitutional Appears: Non-toxic, No Acute Distress - Head Exam Head Exam: NORMAL INSPECTION - ENT Exam ENT Exam: Mucous Membranes Moist - Neck Exam Neck Exam: absent: Lymphadenopathy, Meningismus - Respiratory Exam Respiratory Exam: Decreased Breath Sounds - Cardiovascular Exam Cardiovascular Exam: +S1, +S2 - GI/Abdominal Exam GI & Abdominal Exam: Soft. absent: Tenderness Assessment and Plan - Assessment and Plan (Free Text) Plan: Assessment Consider sepsis due to right lower lobe healthcare-associated pneumonia, on top of acute on chronic congestive heart failure HTN COPD DVT and PE on anticoagulation cataracts history of left hip fracture S/P arthroplasty history of urinary incontinence Plan continue Vancomycin and Merrem day 2 (patient has PCN allergy but was able to tolerate the dose that was given yesterday) blood cx are negative; reviewed CXR ; would recommend 4-7 days of therapy Will continue to follow clinical response
--- NOTE | 2017-01-09 18:08 | PN ---
DATE: 01/09/2017 The patient is in room 272, bed 1. This progress note is being dictated on behalf of , whom I am covering. HISTORY OF PRESENT ILLNESS: The patient is a 76-year-old female admitted with shortness of breath. The patient has known case of atrial fibrillation and has been on anticoagulation. The patient denie s any chest pain at present, denies any palpitations. PHYSICAL EXAMINATION: VITAL SIGNS: Blood pressure 146/75, earlier pressure 133/79; respirations 18, pulse 94, temperature 97.1. HEAD: Normocephalic. EYES: Pupils normal. Conjunctivae normal. NOSE AND THROAT: Normal. NECK: JVP low. Carotid equal. THORAX: AP diameter normal. LUNGS: No significant rales. CARDIOVASCULAR: S1, S2, systolic murmur, no rub. ABDOMEN: Soft, nontender, no organomegaly. EXTREMITIES: No clubbing, no cyanosis. LABORATORY DATA: WBC 11.6, hemoglobin 13.0, hematocrit 37.7, platelet 224. Sodium 136, potassium 4. 0, BUN 9, creatinine 0.5, random sugar 119. AST and ALT normal. Total protein 4.6, albumin 2.1. DIAGNOSES: Pneumonia, atrial fibrillation, weakness, diabetes mellitus, mild congestive heart failur e. PLAN: The patient is continued on Cardizem 60 p.o. t.i.d., warfarin 2 mg p.o. daily, potassium 20 mE q p.o. daily, Lasix 20 mg IV daily, meropenem 1 gram IV q.8 hours, vancomycin 1 gram IV q.12 hours, X openex hand nebulizer therapy. Will continue present therapy and will follow with you. Navneet Molina MD cc: [id number] TT: 01/09/2017 18:07:35 Confirmation # [id number] Dictation # [id number] dn
--- NOTE | 2017-01-09 23:10 | CP.PCM.PN ---
Subjective - Date & Time of Evaluation Date of Evaluation: 01/09/17 Time of Evaluation: 22:54 - Subjective Subjective: # 22 angio cath was inserted in right arm. Dx:Poor venous access. Objective - Vital Signs/Intake and Output Vital Signs (last 24 hours): Temp Pulse Resp BP Pulse Ox 98.1 F 102 H 18 111/65 96 01/09/17 17:52 01/09/17 18:13 01/09/17 17:52 01/09/17 18:13 01/09/17 05:50 - Medications Medications: Current Medications Diltiazem HCl (Cardizem) 60 mg PO TID [facility] Last Admin: 01/09/17 18:13 Dose: 60 mg Furosemide (Lasix) 20 mg IVP DAILY [facility] Last Admin: 01/09/17 10:53 Dose: 20 mg Sodium Chloride (Sodium Chloride 0.45%) 1,000 mls @ 30 mls/hr IV .Q24H [facility] Last Admin: 01/09/17 10:55 Dose: 30 mls/hr Vancomycin HCl (Vancomycin 1gm) 1 gm in 250 mls @ 167 mls/hr IVPB Q12H LOIS PRN Reason: Protocol Last Admin: 01/09/17 20:08 Dose: 167 mls/hr Meropenem 1g/NS 100mL IVPB (Meropenem 1g/Ns 100ml Ivpb) 1 g in 100 mls @ 100 mls/hr IVPB Q8 [facility]IS PRN Reason: Protocol Last Admin: 01/09/17 21:47 Dose: 100 mls/hr Insulin Human Regular (Humulin R Med) 0 units SC ACHS LOIS PRN Reason: Protocol Last Admin: 01/09/17 21:45 Dose: Not Given Levalbuterol HCl (Xopenex) 0.63 mg IH [id number] [facility] Last Admin: 01/09/17 19:41 Dose: 0.63 mg Levalbuterol HCl (Xopenex) 0.63 mg IH Q2 PRN PRN Reason: Shortness of Breath Potassium Chloride (K-Dur 20 Meq Er Tab) 20 meq PO BRK [facility] Last Admin: 01/09/17 10:53 Dose: 20 meq Warfarin Sodium (Coumadin) 2 mg PO 1800 LOIS PRN Reason: Protocol Last Admin: 01/09/17 18:14 Dose: 2 mg - Labs Labs: 01/09/17 07:39 01/09/17 07:39 PT 22.4 Seconds (9.9-11.8) H 01/09/17 07:39 INR 2.07 (0.93-1.08) H 01/09/17 07:39 APTT 35.8 Seconds (23.7-30.8) H 01/07/17 21:35
[2017-01-10] MEDS: Levalbuterol 0.63 MG/3 ML Inhal Soln UD IH SCH ×4 (01:06→20:22)
[2017-01-10] MEDS: MEROPENEM IVPB SCH ×3 (05:05→22:06)
[2017-01-10] MEDS: PIGGYBACK IVPB SCH ×3 (05:05→22:06)
[2017-01-10] MEDS: Sodium Chloride 0.45% 1,000 ML IV SCH (06:29)
[2017-01-10] MEDS: Insulin Reg-MEDIUM-Coverage SC SCH ×4 (07:57→22:07)
[2017-01-10] MEDS: Vancomycin 1gm in NS 250ml 1 GM/250 ML BAG IVPB SCH (08:03)
[2017-01-10] MEDS: Potassium Chloride 20 mEq ER Tab PO SCH (08:04)
--- NOTE | 2017-01-10 10:08 | PN ---
DATE: 01/10/2017 I am looking at the chart. I do not know why my note from yesterday did not populate her census of notes. I will have to call medical records. She is seen in bed today, more alert. She is speaking to me this morning. That is the first, but she is upset. She is weak. She will probably need to have subacute rehab. I will see what physical therapy has to say. She is being seen by cardiology, infectious disease and pulmonary. PHYSICAL EXAMINATION: VITAL SIGNS: She has a 97.8 temp, 99 pulse, 108/blood pressure, 18 respiratory rate, 97% O2 sat on nasal cannula. HEENT: Head is atraumatic, normocephalic. HEART: Regular rate. LUNGS: Decreased breath sounds, but clear. ABDOMEN: Soft. EXTREMITIES: Contracted, no edema. She has 11.6 white count, better, 13 hemoglobin, 37.7 hematocrit with 224 platelets. INR is 2.07. She has a 136 sodium, potassium is 4, BUN 9, creatinine 0.5, GFR is greater than 60, sugar is 100, calcium 7.5, total bili is 0.6, AST is 29, ALT is 32, alk phos is 87, total protein is 4.6. I will replace her calcium. I will continue with aggressive treatment and care. She is on Cardizem, Coumadin, insulin, potassium, Lasix, Merrem, IV fluids, vancomycin IV, Xopenex. I am going to call physical therapy in. I believe she needs subacute rehab. Continue with aggressive treatment and care, and I will contact medical records to find out why my note from yesterday did not populate. She is here for right lower lobe pneumonia, chronic obstructive pulmonary disease, hypertension, sepsis. Angus Peña DO cc: [id number] TT: 01/10/2017 10:07:59 Confirmation # [id number] Dictation # [id number] en MTDD
--- NOTE | 2017-01-10 11:20 | CP.PCM.PN ---
Subjective - Date & Time of Evaluation Date of Evaluation: 01/10/17 Time of Evaluation: 09:50 - Subjective Subjective: Patient went for CXR, still has some SOB at rest. No fevers overnight. Objective - Vital Signs/Intake and Output Vital Signs (last 24 hours): Temp Pulse Resp BP Pulse Ox 97.8 F 103 H 18 108/18 L 97 01/10/17 06:00 01/10/17 06:00 01/10/17 06:00 01/10/17 06:00 01/10/17 06:00 Intake and Output: 01/10/17 01/10/17 06:59 18:59 Intake Total 1420 Balance 1420 - Medications Medications: Current Medications Diltiazem HCl (Cardizem) 60 mg PO TID [facility] Last Admin: 01/09/17 18:13 Dose: 60 mg Furosemide (Lasix) 20 mg IVP DAILY [facility] Last Admin: 01/09/17 10:53 Dose: 20 mg Sodium Chloride (Sodium Chloride 0.45%) 1,000 mls @ 30 mls/hr IV .Q24H [facility] Last Admin: 01/10/17 06:29 Dose: Not Given Meropenem 1g/NS 100mL IVPB (Meropenem 1g/Ns 100ml Ivpb) 1 g in 100 mls @ 100 mls/hr IVPB Q8 LOIS PRN Reason: Protocol Last Admin: 01/10/17 05:05 Dose: 100 mls/hr Insulin Human Regular (Humulin R Med) 0 units SC ACHS LOIS PRN Reason: Protocol Last Admin: 01/10/17 07:57 Dose: Not Given Levalbuterol HCl (Xopenex) 0.63 mg IH [id number] [facility] Last Admin: 01/10/17 08:18 Dose: 0.63 mg Levalbuterol HCl (Xopenex) 0.63 mg IH Q2 PRN PRN Reason: Shortness of Breath Potassium Chloride (K-Dur 20 Meq Er Tab) 20 meq PO BRK [facility] Last Admin: 01/10/17 08:04 Dose: 20 meq Warfarin Sodium (Coumadin) 2 mg PO 1800 LOIS PRN Reason: Protocol Last Admin: 01/09/17 18:14 Dose: 2 mg - Labs Labs: 01/09/17 07:39 01/09/17 07:39 PT 22.4 Seconds (9.9-11.8) H 01/09/17 07:39 INR 2.07 (0.93-1.08) H 01/09/17 07:39 APTT 35.8 Seconds (23.7-30.8) H 01/07/17 21:35 - Constitutional Appears: Non-toxic, No Acute Distress - ENT Exam ENT Exam: Mucous Membranes Moist - Respiratory Exam Respiratory Exam: Decreased Breath Sounds - Cardiovascular Exam Cardiovascular Exam: +S1, +S2 - GI/Abdominal Exam GI & Abdominal Exam: Soft. absent: Tenderness Assessment and Plan - Assessment and Plan (Free Text) Plan: Assessment Consider sepsis due to right lower lobe healthcare-associated pneumonia, on top of acute on chronic congestive heart failure HTN COPD DVT and PE on anticoagulation cataracts history of left hip fracture S/P arthroplasty history of urinary incontinence Plan continue Merrem day 3 (patient has PCN allergy but was able to tolerate the dose that was given yesterday) blood cx are negative - will d/c IV Vancomycin; reviewed CXR - will follow up repeat CXR done today; would recommend 4-7 days of therapy Will continue to follow clinical response
--- NOTE | 2017-01-10 11:40 | RAD ---
HISTORY: follow up COMPARISON: 01/07/2017 TECHNIQUE: Chest PA and lateral FINDINGS: LUNGS: Bilateral interstitial infiltrates. PLEURA: Bilateral pleural effusions. CARDIOVASCULAR: Cardiomegaly and atherosclerotic aorta. OSSEOUS STRUCTURES: No significant abnormalities. VISUALIZED UPPER ABDOMEN: Normal. OTHER FINDINGS: None. IMPRESSION: Bilateral interstitial infiltrates and effusions with cardiomegaly compatible with CHF.
--- NOTE | 2017-01-10 13:08 | PN ---
DATE: 01/10/2017 The patient in room 272, bed 1. This progress note is being written on behalf of , whom I am covering. HISTORY OF PRESENT ILLNESS: The patient is a 76-year-old female admitted with shortness of breath. The patient known to have atrial fibrillation and has been on anticoagulation. The patient denies an y chest pain or palpitation. The patient also being treated for pneumonia. PHYSICAL EXAMINATION: VITAL SIGNS: Blood pressure 125/63, respiration 19, pulse rate of 140, temperature 97.7. HEAD: Normocephalic. EYES: Pupils normal. Conjunctivae normal. NOSE AND THROAT: Normal. NECK: JVP low. Carotid equal. THORAX: AP diameter normal. LUNGS: No significant rales. CARDIOVASCULAR: S1, S2, rapid rate atrial fibrillation. Irregular rhythm, no rub. ABDOMEN: Soft, nontender, no organomegaly. Bowel sounds normal. EXTREMITIES: No clubbing, no cyanosis. LABORATORY DATA: Done on 01/09/2017. They were reported in our previous notes. DIAGNOSES: Pneumonia, atrial fibrillation, weakness, diabetes mellitus, mild congestive heart failur e, atrial fibrillation, now again with rapid rate. PLAN: The patient's heart rate is again, rapid. The patient getting p.o. Cardizem 60 t.i.d. We viviane l give 10 mg IV bolus, and we will also give patient atenolol 25 mg to slow the heart rate. The blank ent is on warfarin 2 mg p.o. daily, furosemide 20 IV daily, meropenem 1 gram IV q. 8 hours. The blank ent is getting Xopenex treatment. We will increase Cardizem to 60 mg q.i.d., and we will monitor th e heart rate. Yesterday, patient's prothrombin time 22.4, INR 2.07, which is therapeutic. From [facility] go, will follow the patient. Navneet Molina MD cc: [id number] TT: 01/10/2017 13:07:08 Confirmation # [id number] Dictation # [id number] mn
[2017-01-11] MEDS: Levalbuterol 0.63 MG/3 ML Inhal Soln UD IH SCH ×4 (01:43→20:18)
[2017-01-11] MEDS: PIGGYBACK IVPB SCH ×3 (06:09→21:42)
[2017-01-11] MEDS: MEROPENEM IVPB SCH ×3 (06:09→21:42)
[2017-01-11] MEDS: Sodium Chloride 0.45% 1,000 ML IV SCH (06:11)
--- NOTE | 2017-01-11 07:27 | PN ---
DATE: 01/10/2017 PULMONARY NOTE SUBJECTIVE: The patient appears comfortable this morning. She is not short of breath at rest. OBJECTIVE: VITAL SIGNS: Temperature is 97.8, pulse 103, respirations 18, blood pressure 125/63. Oxygen saturation on nasal cannula is 97%. HEENT: Normocephalic, atraumatic. No JVD. CARDIOVASCULAR: Systolic ejection murmur at the lower left sternal border. No S3 gallop. LUNGS: Decreased breath sounds at the bases. Minimal/less rhonchi. No wheezing. EXTREMITIES: No clubbing, cyanosis, or edema. Calves are nontender to palpation. GASTROINTESTINAL: Abdomen is soft, nontender, nondistended. Bowel sounds are positive. SKIN: No acute rash. NEUROLOGIC: Limited at the present time. IMPRESSION: 1. Rule out right lower lobe pneumonia. 2. Chronic obstructive pulmonary disease. 3. Congestive heart failure. 4. Cardiac arrhythmias. 5. Multiple electrolyte abnormalities. PLAN: The patient appears comfortable this morning. She is not short of breath at rest. She does state to feeling better overall. However, she remains very weak-appearing. On physical exam, there is certainly less bronchospasm. In addition, the oxygen saturation on nasal cannula is now 97%. I will continue with the current nebulizer treatments and aspiration precautions for now. I would continue with the antibiotic coverage, as per infectious disease for now. There are no temperatures noted. The leukocytosis is resolving. I did order a repeat chest x-ray - for today - for comparison. I will check that when feasible. I would continue with the treatment for the cardiac arrhythmias, as per cardiology. Input by Dr. Molina is noted. Clinical status of the patient certainly appears improved - compared to the initial presentation. However, again, the overall status/prognosis for this elderly patient appears very poor. I will discuss the above with Dr. Peña. Junior Hollins MD cc: [phone] TT: 01/10/2017 08:46:41 Confirmation # [id number] Dictation # [id number] jn MTDD
[2017-01-11] MEDS: Insulin Reg-MEDIUM-Coverage SC SCH ×4 (07:38→21:42)
[2017-01-11 08:03] LABS: HEMATOCRIT 34.4 % (36.0-48.0); MEAN CELL VOLUME 82.9 fL (80.0-105.0); MEAN CORPUSCULAR HGB CONC 33.7 g/dl (31.0-37.0); MEAN PLATELET VOLUME 8.8 fl (7.0-11.0); RED CELL DISTRIBUTION WIDTH 19.1 % (11.5-14.5); WHITE BLOOD COUNT 8.7 10^3/ul (4.5-11.0)
[2017-01-11 08:18] LABS: ALB/GLOB RATIO 0.9 (1.1-1.8); ALKALINE PHOSPHATASE 88 U/L (38-133); ALT/SGPT 24 U/L (7-56); AST/SGOT 32 U/L (15-39); BILIRUBIN,TOTAL 0.5 mg/dL (0.2-1.3); BLOOD UREA NITROGEN 8 mg/dL (7-21); CALCIUM 7.5 mg/dL (8.4-10.5); CARBON DIOXIDE 21 mmol/L (21-33); CHLORIDE 107 mmol/L (98-107); GFR AFRICAN-AMERICAN > 60; GLUCOSE,RANDOM 83 mg/dL (70-110); POTASSIUM 3.5 mmol/L (3.6-5.0); SODIUM 132 mmol/L (132-148)
--- NOTE | 2017-01-11 08:58 | PN ---
DATE: 01/11/2017 SUBJECTIVE: The patient appears comfortable at rest. She is not short of breath. PHYSICAL EXAMINATION: VITAL SIGNS: Temperature is 98.4, pulse 85, respirations 19, blood pressure 90/ 56. Oxygen saturation on nasal cannula is 97%. HEENT: Normocephalic, atraumatic. No JVD. CARDIOVASCULAR: Systolic ejection murmur at the lower left sternal border. No S3 gallop. LUNGS: Decreased breath sounds at the bases. Minimal/less rhonchi. No wheezing. EXTREMITIES: No clubbing, cyanosis, or edema. Calves are nontender to palpation. GASTROINTESTINAL: Abdomen is soft, nontender, nondistended. Bowel sounds are positive. SKIN: No acute rash. NEUROLOGIC: Limited at the present time. PERTINENT LABORATORY DATA: Chest x-ray was done yesterday and reviewed. There appears to be a decrease in the right lower lobe infiltrate. However, there is a mild increase in the pulmonary vascular congestive changes with small bilateral pleural effusions. IMPRESSION: 1. Rule out right lower lobe pneumonia. 2. Chronic obstructive pulmonary disease. 3. Congestive heart failure. 4. Cardiac arrhythmias. 5. Multiple electrolyte abnormalities. PLAN: The patient appears comfortable this morning. She is not short of breath at rest. She does state to feeling better overall. She remains very weak and disabled looking. On physical exam, her bronchospasm continues to resolve. In addition, the alveolar arterial gradient also continues to resolve. I will continue with the current nebulizer treatments and aspiration precautions for now. I did review the chest x-ray as above. The right lower lobe infiltrate appears decreased in size. However, there is a mild increase in the pulmonary vascular congestive changes with small bilateral pleural effusions. I would continue with the cardiology evaluation and treatment-- noted. The patient remains on Lasix/afterload reduction. The patient also remains on antibiotic therapy-as per infectious disease. There are no temperatures noted. The leukocytosis is resolving. The clinical status of the patient is certainly improved-compared to the initial presentation. However, again, the overall status/prognosis for this elderly patient remains poor. I will discuss the above with Dr. Peña. Junior Hollins MD cc: [phone] TT: 01/11/2017 08:58:13 Confirmation # [id number] Dictation # [id number] cn GLADIS
--- NOTE | 2017-01-11 09:07 | PN ---
DATE: 01/09/2017 NOTE: For some reason it did not populate. I do not know where the note went but I know it was here and I did it. I went to medical records and they could not find it. I am redoing that date's note, 01/09/2017. SUBJECTIVE: She is in bed. She is nonverbal. Her eyes open a little bit. She is on IV antibiotics , IV fluids. She is very sick. PHYSICAL EXAMINATION: VITAL SIGNS: That day were 97.8 temp, 99 pulse, 108/18 blood pressure, 18 respiratory rate, 97% O2 s at on 3 liters nasal cannula. HEENT: Head is atraumatic, normocephalic. Her eyes area open; that is about it. Nonverbal, nontalk ing. HEART: Regular rate. LUNGS: Decreased breath sounds bilaterally. ABDOMEN: Soft. EXTREMITIES: Contracted, and she is currently lying on her side in a ball. MEDICATIONS: She was on Cardizem, Coumadin, insulin, potassium, Lasix IV, Merrem IV, IV fluids, Tyle nol, Xopenex. LABORATORY DATA: On that day, she had 11.6 white count, 13 hemoglobin, 37.7 white count and 224 plat elets. Also on 01/09/2017, she had a 136 sodium, potassium is 4, BUN is 9, creatinine 0.5, GFR is gr eater than 60, sugar is 100, calcium 7.5. Total bili is 0.6, AST is 29, ALT 32, alk phos is 87. Tro ponin 10.03. Total protein is 4.6. She is being seen by cardio, infectious disease, pulmonary. She has multiple issues. She has a pneumonia, atrial fibrillation, mild congestive heart failure, we akness, debility and she is bedridden. Continue with aggressive treatment and care. Will check her labs tomorrow. She just got out of the hospital. She is going to hopefully go home with 24-hour car e. I will discuss with case management and social media specialist. Hopefully she will wake up. Angus Peña DO cc: [phone] TT: 01/11/2017 09:06:59 Confirmation # [id number] Dictation # [id number] mn
--- NOTE | 2017-01-11 09:19 | CP.PCM.PN ---
Subjective - Date & Time of Evaluation Date of Evaluation: 01/11/17 Time of Evaluation: 08:10 - Subjective Subjective: Comfortable, afebrile, not in distress. Still with some shortness of breath at rest though. Objective - Vital Signs/Intake and Output Vital Signs (last 24 hours): Temp Pulse Resp BP Pulse Ox 98.4 F 98 H 19 90/56 L 97 01/11/17 05:42 01/11/17 05:42 01/11/17 05:42 01/11/17 05:42 01/11/17 05:42 Intake and Output: 01/11/17 01/11/17 06:59 18:59 Intake Total 120 Balance 120 - Medications Medications: Current Medications Acetaminophen (Tylenol 325mg Tab) 650 mg PO Q6H PRN PRN Reason: Fever >100.4 F Last Admin: 01/10/17 14:48 Dose: 650 mg Diltiazem HCl (Cardizem) 60 mg PO QID [facility] Last Admin: 01/10/17 22:58 Dose: Not Given Furosemide (Lasix) 20 mg IVP DAILY [facility] Last Admin: 01/10/17 10:58 Dose: 20 mg Sodium Chloride (Sodium Chloride 0.45%) 1,000 mls @ 30 mls/hr IV .Q24H [facility] Last Admin: 01/11/17 06:11 Dose: 30 mls/hr Meropenem 1g/NS 100mL IVPB (Meropenem 1g/Ns 100ml Ivpb) 1 g in 100 mls @ 100 mls/hr IVPB Q8 [facility] PRN Reason: Protocol Last Admin: 01/11/17 06:09 Dose: 100 mls/hr Insulin Human Regular (Humulin R Med) 0 units SC ACHS [facility] PRN Reason: Protocol Last Admin: 01/11/17 07:38 Dose: Not Given Levalbuterol HCl (Xopenex) 0.63 mg IH [id number] [facility] Last Admin: 01/11/17 01:43 Dose: 0.63 mg Levalbuterol HCl (Xopenex) 0.63 mg IH Q2 PRN PRN Reason: Shortness of Breath Potassium Chloride (K-Dur 20 Meq Er Tab) 20 meq PO BRK [facility] Last Admin: 01/10/17 08:04 Dose: 20 meq Warfarin Sodium (Coumadin) 2 mg PO 1800 LOIS PRN Reason: Protocol Last Admin: 01/10/17 18:29 Dose: Not Given - Labs Labs: 01/09/17 07:39 01/09/17 07:39 PT 22.4 Seconds (9.9-11.8) H 01/09/17 07:39 INR 2.07 (0.93-1.08) H 01/09/17 07:39 APTT 35.8 Seconds (23.7-30.8) H 01/07/17 21:35 - Constitutional Appears: Non-toxic, No Acute Distress - Head Exam Head Exam: NORMAL INSPECTION - ENT Exam ENT Exam: Mucous Membranes Moist - Neck Exam Neck Exam: absent: Meningismus - Respiratory Exam Respiratory Exam: Decreased Breath Sounds - Cardiovascular Exam Cardiovascular Exam: +S1, +S2 - GI/Abdominal Exam GI & Abdominal Exam: Soft. absent: Tenderness Assessment and Plan - Assessment and Plan (Free Text) Plan: Assessment Consider sepsis due to right lower lobe healthcare-associated pneumonia, on top of acute on chronic congestive heart failure HTN COPD DVT and PE on anticoagulation cataracts history of left hip fracture S/P arthroplasty history of urinary incontinence Plan continue Merrem day 4 (patient has PCN allergy but was able to tolerate the dose that was given yesterday); blood cx are negative; reviewed CXR yesterday, looks more like CHF; would recommend 4-7 days of therapy and would consider d/c antibiotics after today Will continue to monitor clinically
[2017-01-11] MEDS: Potassium Chloride 20 mEq ER Tab PO SCH (10:02)
--- NOTE | 2017-01-11 11:38 | PN ---
DATE: 01/11/2017 I saw the patient resting in bed. She is very alert. She is talking with me - the most alert she has been. She is more alert, talking, comfortable in bed, no pain. She has got an appetite. She is hungry. IV antibiotics and fluids are running. PHYSICAL EXAMINATION: VITAL SIGNS: Temp 97.8, 99 pulse, 108/ blood pressure, 18 respiratory rate, 97 % O2 sat on 3 liters nasal cannula. HEAD: Atraumatic, normocephalic. GENERAL: She is very alert. She is talking - the best I have seen her. No chest pain. HEART: Regular rate. LUNGS: Decreased breath sounds, but clear to auscultation. ABDOMEN: Soft. EXTREMITIES: A little bit contracted. Physical therapy said that she is bedbound at home. and once we are done with the antibiotics, we can discharge her. MEDICATIONS: She is on potassium, Cardizem, Coumadin, Lasix, Merrem, IV fluids , Tylenol, Xopenex. LABORATORY DATA: The labs are pending this morning. Last INR was 2.0. She is being seen by cardiology, infectious disease, pulmonary. She has had a right lower lobe pneumonia. Consider sepsis, CHF - acute on chronic, hypertension, COPD. She is still on IV Merrem for 4-7 days. When I get the okay from infectious disease, will change her to tablets and discharge her home. She is waking up, which is good. I will try and get her out of bed to chair. Angus Peña DO cc: [phone] TT: 01/11/2017 08:40:50 Confirmation # [id number] Dictation # [id number] jn MTDD
--- NOTE | 2017-01-11 11:41 | PN ---
DATE: 01/11/2017 CARDIOLOGY FOLLOWUP SUBJECTIVE: The patient is comfortable, awake, without shortness of breath. PHYSICAL EXAMINATION: VITAL SIGNS: Heart rate is atrial fibrillation in the 120s. Blood pressure is 108/79. NECK: Negative JVD. LUNGS: Decreased breath sounds bilaterally. HEART: Reveals S1, S2. EXTREMITIES: Edematous in her upper extremities. LABORATORY DATA: Echocardiogram shows good LV function with no pulmonary hypertension. The glucose is 113. IMPRESSION: 1. Atrial fibrillation. 2. Pneumonia. 3. Edema in the upper extremities. 4. Dementia. Given these findings, the patient is already on p.o. Cardizem. We will increase her beta-blockers to help her control heart rate. We will obtain venous Dopplers of the upper extremities to rule out ca uses of edema in her upper extremities. Norbert Wong MD cc: [phone] TT: 01/11/2017 11:30:57 Confirmation # [id number] Dictation # [id number] adela
--- NOTE | 2017-01-11 14:11 | CP.PCM.CON ---
History of Present Illness - History of Present Illness History of Present Illness: Palliative consult requested by Dr Maria A Peña Reason: Goals of care/advance care planning 76 year old female who was sent form [facility] with shortness of breath, non productive cough and fatigue.Chest xray showed low lung volume small bilateral pleural effusions. PMHx:CHF,HTN,COPD,HTN,DVT,PE, atrial fibrillation anti coagulation therapy, L hip fracture s/p arthroplasty, incontinence,severe deconditioning Social History:Former smoker, non alcohol or drug use. . Lives with son. Family History: Non contributory Advance Care Planning: The patient does not have an Advance Directive Review of Systems: As per HPI, no additional complaints Past Patient History - Infectious Disease Hx of Infectious Diseases: None - Tetanus Immunizations Tetanus Immunization: Unknown - Past Social History Smoking Status: Former Smoker - CARDIAC Hx Cardiac Disorders: Yes Hx Congestive Heart Failure: Yes Hx Hypertension: Yes - PULMONARY Hx Chronic Obstructive Pulmonary Disease (COPD): Yes - NEUROLOGICAL Hx Neurological Disorder: No - HEENT Hx HEENT Problems: Yes Hx Cataracts: Yes - RENAL Hx Chronic Kidney Disease: No - ENDOCRINE/METABOLIC Hx Diabetes Mellitus Type 2: Yes - HEMATOLOGICAL/ONCOLOGICAL Hx Blood Disorders: No - INTEGUMENTARY Hx Dermatological Problems: No - MUSCULOSKELETAL/RHEUMATOLOGICAL Hx Musculoskeletal Disorders: Yes Hx Back Pain: Yes Hx Falls: Yes Hx Fractures: Yes (left hip) - GASTROINTESTINAL Hx Gastrointestinal Disorders: No - GENITOURINARY/GYNECOLOGICAL Hx Genitourinary Disorders: Yes Hx Incontinence: Yes - PSYCHIATRIC Hx Psychophysiologic Disorder: No - SURGICAL HISTORY Hx Musculoskeletal Surgery: Yes (3 hip replacements as per grandson) - ANESTHESIA Hx Anesthesia: Yes Hx Anesthesia Reactions: No Meds Allergies/Adverse Reactions: Allergies Allergy/AdvReac Type Severity Reaction Status Date / Time Penicillins Allergy Intermediate SHORTNESS Verified 11/13/16 18:21 OF BREATH pentazocine lactate Allergy SHORTNESS Verified 11/13/16 18:21 [From [facility]lesk[facility]] OF BREATH - Medications Medications: Current Medications Acetaminophen (Tylenol 325mg Tab) 650 mg PO Q6H PRN PRN Reason: Fever >100.4 F Last Admin: 01/10/17 14:48 Dose: 650 mg Diltiazem HCl (Cardizem) 60 mg PO QID [facility] Last Admin: 01/11/17 10:02 Dose: 60 mg Furosemide (Lasix) 20 mg IVP DAILY [facility] Last Admin: 01/11/17 09:45 Dose: 20 mg Sodium Chloride (Sodium Chloride 0.45%) 1,000 mls @ 30 mls/hr IV .Q24H [facility] Last Admin: 01/11/17 06:11 Dose: 30 mls/hr Meropenem 1g/NS 100mL IVPB (Meropenem 1g/Ns 100ml Ivpb) 1 g in 100 mls @ 100 mls/hr IVPB Q8 [facility] PRN Reason: Protocol Last Admin: 01/11/17 06:09 Dose: 100 mls/hr Insulin Human Regular (Humulin R Med) 0 units SC ACHS [facility] PRN Reason: Protocol Last Admin: 01/11/17 11:19 Dose: Not Given Levalbuterol HCl (Xopenex) 0.63 mg IH [id number] [facility] Last Admin: 01/11/17 08:04 Dose: 0.63 mg Levalbuterol HCl (Xopenex) 0.63 mg IH Q2 PRN PRN Reason: Shortness of Breath Last Admin: 01/11/17 09:52 Dose: 0.63 mg Metoprolol Tartrate (Lopressor) 25 mg PO BID [facility] Last Admin: 01/11/17 11:28 Dose: 25 mg Potassium Chloride (K-Dur 20 Meq Er Tab) 20 meq PO BRK [facility] Last Admin: 01/11/17 10:02 Dose: 20 meq Warfarin Sodium (Coumadin) 2 mg PO 1800 [facility] PRN Reason: Protocol Last Admin: 01/10/17 18:29 Dose: Not Given Physical Exam - Constitutional Appears: Cachectic, Chronically Ill - Head Exam Head Exam: NORMAL INSPECTION - Eye Exam Eye Exam: Normal appearance, PERRL - ENT Exam ENT Exam: Mucous Membranes Moist, Normal Oropharynx - Neck Exam Neck exam: Positive for: Normal Inspection - Respiratory Exam Respiratory Exam: Decreased Breath Sounds, Wheezes - Cardiovascular Exam Cardiovascular Exam: REGULAR RHYTHM, +S1, +S2 - GI/Abdominal Exam GI & Abdominal Exam: Normal Bowel Sounds, Soft - Extremities Exam Additional comments: lower extremities contracted, upper extremities edematous - Neurological Exam Neurological exam: Alert Additional comments: oriented to self and place - Skin Skin Exam: Dry, Pallor Additional comments: numerous skin tears of arms - Additional Findings Additional findings: Palliative performance scale 40 % Results - Vital Signs Recent Vital Signs: Last Vital Signs Temp 98.0 F 01/11/17 12:00 Pulse 90 01/11/17 12:00 Resp 18 01/11/17 12:00 BP 135/87 01/11/17 12:00 Pulse Ox 97 01/11/17 05:42 - Labs Result Diagrams: 01/11/17 07:00 01/11/17 07:00 Labs: Laboratory Results - last 24 hr 01/10/17 01/10/17 01/10/17 07:39 11:43 15:55 WBC RBC Hgb Hct MCV MCH MCHC RDW Plt Count MPV Sodium Potassium Chloride Carbon Dioxide Anion Gap BUN Creatinine Est GFR ( Amer) Est GFR (Non-Af Amer) POC Glucose (mg/dL) 92 121 H 113 H Random Glucose Calcium Total Bilirubin AST ALT Alkaline Phosphatase Total Protein Albumin Globulin Albumin/Globulin Ratio 01/11/17 01/11/17 07:00 07:00 WBC 8.7 D RBC 4.15 Hgb 11.6 L Hct 34.4 L MCV 82.9 MCH 28.0 MCHC 33.7 RDW 19.1 H Plt Count 273 MPV 8.8 Sodium 132 Potassium 3.5 L Chloride 107 Carbon Dioxide 21 Anion Gap 8 L BUN 8 Creatinine 0.5 Est GFR ( Amer) > 60 Est GFR (Non-Af Amer) > 60 POC Glucose (mg/dL) Random Glucose 83 Calcium 7.5 L Total Bilirubin 0.5 AST 32 ALT 24 Alkaline Phosphatase 88 Total Protein 5.0 L Albumin 2.3 L Globulin 2.6 Albumin/Globulin Ratio 0.9 L Assessment & Plan - Assessment and Plan (Free Text) Assessment: 76 year old female admitted with CHF exacerbation, right lower lobe pneumonia. Multiple comorbidities, see PMH. The patient complains of shortness of breath. Denies pain. Her lower extremities are contracted, she is bed bound. She need assistance with all ADL' s. Patient alert, mildly confused. Goals of care discussed. Patient states she has plenty of help and wants to go home. I asked who helped her with ADLs' and she stated that her and son were there. I spoke with patients via phone in order to arrange a meeting to discuss future care plan. states he does not live with his spouse and that his son works most of the time. met with shoe caser to discuss options for discharge. Also discussed advance care planning with patient. She faith not have an Advance Directive. Benefits and burdens of resuscitation discussed. Patient appears to have insight into such planning. States she does not want to be intubated but not sure how she feels about CPR. I told her I would return tomorrow for further discussion regarding this process. Time spent in discussion with patient and regarding goals of care and advance care planning, 45 minutes Plan: Continue current treatment regimen Will assist with advance care planning
--- NOTE | 2017-01-11 19:02 | US ---
HISTORY: Arm pain and swelling. Evaluate for deep venous thrombosis. PHYSICIAN(S): Norbert Bradford MD. FINDINGS: The visualized internal jugular veins are sonographically normal and compressible. No evidence of obstruction or thrombus this is seen. The visualized segments of the subclavian veins are patent with normal waveforms. No sonographic evidence of obstruction or thrombosis is seen. The visualized deep venous systems of both upper extremities proximally are sonographically normal and compressible. IMPRESSION: 1. No sonographic evidence for deep venous thrombosis in the visualized segments of both upper strategies.
[2017-01-12] MEDS: Levalbuterol 0.63 MG/3 ML Inhal Soln UD IH SCH ×4 (01:29→20:16)
[2017-01-12] MEDS: MEROPENEM IVPB SCH (06:03)
[2017-01-12] MEDS: PIGGYBACK IVPB SCH (06:03)
[2017-01-12] MEDS: Sodium Chloride 0.45% 1,000 ML IV SCH (06:50)
--- NOTE | 2017-01-12 07:34 | PN ---
DATE: 01/12/2017 SUBJECTIVE: The patient appears comfortable this morning. She is not short of breath at rest. PHYSICAL EXAMINATION: VITAL SIGNS: Temperature is 98.1, pulse 96, respirations 18, blood pressure 115 /74. Oxygen saturation on nasal cannula is 98%. HEENT: Normocephalic, atraumatic. No JVD. CARDIOVASCULAR: Systolic ejection murmur at the lower left sternal border. No S3 gallop. LUNGS: Decreased breath sounds at the bases. Very minimal/less rhonchi. No wheezing. EXTREMITIES: No clubbing, cyanosis, or edema. Calves are nontender to palpation. GASTROINTESTINAL: Abdomen is soft, nontender, nondistended. Bowel sounds are positive. SKIN: No acute rash. NEUROLOGIC: Limited at the present time. IMPRESSION: 1. Rule out right lower lobe pneumonia. 2. Chronic obstructive pulmonary disease. 3. Congestive heart failure. 4. Cardiac arrhythmias. 5. Multiple electrolyte abnormalities. PLAN: The patient appears comfortable this morning. She is not short of breath at rest. She does state to feeling better overall. However, she does remain very weak and disabled looking. On physical exam, there is no significant bronchospasm noted. In addition, there is no significant alveolar- arterial gradient. I will continue with the current nebulizer treatments for now. The patient remains on antibiotic therapy -- as per infectious disease. There are no temperatures noted. The leukocytosis has completely resolved. Clinical status of the patient is certainly improved -- compared to last week. However, again, the overall status/prognosis for this elderly patient remains poor. Input by Marilia Dean (palliative care) is noted. I will also discuss the above with Dr. Peña. Junior Hollins MD cc: [phone] TT: 01/12/2017 07:33:01 Confirmation # [id number] Dictation # [id number] en MTDD
[2017-01-12] MEDS: Potassium Chloride 20 mEq ER Tab PO SCH (08:49)
[2017-01-12] MEDS: Insulin Reg-MEDIUM-Coverage SC SCH ×2 (08:49→15:49)
--- NOTE | 2017-01-12 10:37 | PN ---
DATE: 01/12/2017 I see her resting in bed this morning. She is alert, better. She ate maybe 30 % of her breakfast - not much appetite. She is a little bit in pain, but she gets medicated with Tylenol, and that helps. She is on Cardizem, Coumadin, insulin, potassium, Lasix, Lopressor, Merrem IV, IV fluids, Tylenol, and Xopenex. She is alert. She understands what is going on. She had a nice conversation with me. PHYSICAL EXAMINATION: VITAL SIGNS: She has a 98.1 temp, 96 pulse, 115/74 blood pressure, 20 respiratory rate, 98% O2 sat on 3 liters nasal cannula. HEAD: Atraumatic, normocephalic. HEART: Regular rate. LUNGS: Decreased breath sounds bilaterally, but clear. ABDOMEN: Soft, nontender, positive bowel sounds. EXTREMITIES: Contracted, thin and weak and frail. No edema. LABORATORY DATA: She has an 8.7 white count (the best it has been), 11.6 hemoglobin, 34.4 hematocrit with 273 platelets - first white count under 10. INR is 2.07. She has a 132 sodium, potassium 3.5. Sugar is 75. Calcium is 7.5. AST is 32. ALT is 24, alk phos 88. Total protein is 5. She is being seen by palliative care, cardiology, pulmonology, infectious disease. We are trying to get her to long-term care placement at [facility]. She has multiple issues. She had a right lower lobe pneumonia, COPD , hypertension, sepsis, and hopefully, she will continue to improve. We will check her labs tomorrow. Continue to get discharge planning for long-term care placement. We will check her labs tomorrow. Discussed with the at length also. Angus Peña DO cc: [id number] TT: 01/12/2017 10:37:09 Confirmation # [id number] Dictation # [id number] jn GLADIS
--- NOTE | 2017-01-12 10:52 | CP.PCM.PN ---
Subjective - Date & Time of Evaluation Date of Evaluation: 01/12/17 Time of Evaluation: 09:25 - Subjective Subjective: Afebrile overnight, still has some SOB but not in distress. Objective - Vital Signs/Intake and Output Vital Signs (last 24 hours): Temp Pulse Resp BP Pulse Ox 98.1 F 96 H 20 115/74 98 01/12/17 06:00 01/12/17 06:00 01/12/17 06:00 01/12/17 06:00 01/12/17 06:00 Intake and Output: 01/12/17 01/12/17 06:59 18:59 Intake Total 530 Balance 530 - Medications Medications: Current Medications Acetaminophen (Tylenol 325mg Tab) 650 mg PO Q6H PRN PRN Reason: Fever >100.4 F Last Admin: 01/10/17 14:48 Dose: 650 mg Diltiazem HCl (Cardizem) 60 mg PO QID [facility] Last Admin: 01/11/17 21:41 Dose: 60 mg Furosemide (Lasix) 20 mg IVP DAILY [facility] Last Admin: 01/11/17 09:45 Dose: 20 mg Sodium Chloride (Sodium Chloride 0.45%) 1,000 mls @ 30 mls/hr IV .Q24H [facility] Last Admin: 01/12/17 06:50 Dose: Not Given Meropenem 1g/NS 100mL IVPB (Meropenem 1g/Ns 100ml Ivpb) 1 g in 100 mls @ 100 mls/hr IVPB Q8 [facility] PRN Reason: Protocol Last Admin: 01/12/17 06:03 Dose: 100 mls/hr Insulin Human Regular (Humulin R Med) 0 units SC ACHS [facility] PRN Reason: Protocol Last Admin: 01/11/17 21:42 Dose: Not Given Levalbuterol HCl (Xopenex) 0.63 mg IH [id number] [facility] Last Admin: 01/12/17 01:29 Dose: 0.63 mg Levalbuterol HCl (Xopenex) 0.63 mg IH Q2 PRN PRN Reason: Shortness of Breath Last Admin: 01/11/17 09:52 Dose: 0.63 mg Metoprolol Tartrate (Lopressor) 25 mg PO BID [facility] Last Admin: 01/11/17 17:39 Dose: 25 mg Potassium Chloride (K-Dur 20 Meq Er Tab) 20 meq PO BRK [facility] Last Admin: 01/11/17 10:02 Dose: 20 meq Warfarin Sodium (Coumadin) 2 mg PO 1800 [facility] PRN Reason: Protocol Last Admin: 01/11/17 17:39 Dose: 2 mg - Labs Labs: 01/11/17 07:00 01/11/17 07:00 PT 22.4 Seconds (9.9-11.8) H 01/09/17 07:39 INR 2.07 (0.93-1.08) H 01/09/17 07:39 APTT 35.8 Seconds (23.7-30.8) H 01/07/17 21:35 - Constitutional Appears: Non-toxic, No Acute Distress - Head Exam Head Exam: NORMAL INSPECTION - ENT Exam ENT Exam: Mucous Membranes Moist - Neck Exam Neck Exam: absent: Lymphadenopathy, Meningismus - Respiratory Exam Respiratory Exam: Decreased Breath Sounds - Cardiovascular Exam Cardiovascular Exam: +S1, +S2 - GI/Abdominal Exam GI & Abdominal Exam: Soft. absent: Tenderness Assessment and Plan - Assessment and Plan (Free Text) Plan: Assessment Consider sepsis due to right lower lobe healthcare-associated pneumonia, on top of acute on chronic congestive heart failure HTN COPD DVT and PE on anticoagulation cataracts history of left hip fracture S/P arthroplasty history of urinary incontinence Plan continue Merrem day 5 (patient has PCN allergy but was able to tolerate the dose that was given yesterday); blood cx are negative; reviewed CXR yesterday, looks more like CHF; would recommend 4-7 days of therapy and would consider d/c antibiotics today Will continue to monitor clinically
--- NOTE | 2017-01-12 12:35 | CP.PCM.PN ---
Subjective - Date & Time of Evaluation Date of Evaluation: 01/12/17 Time of Evaluation: 12:00 - Subjective Subjective: Alert, confused,oriented to self. Resting comfortably in bed. Objective - Vital Signs/Intake and Output Vital Signs (last 24 hours): Temp Pulse Resp BP Pulse Ox 97.9 F 98 H 18 111/74 98 01/12/17 12:00 01/12/17 12:00 01/12/17 12:00 01/12/17 12:00 01/12/17 06:00 Intake and Output: 01/12/17 01/12/17 06:59 18:59 Intake Total 530 Balance 530 - Medications Medications: Current Medications Acetaminophen (Tylenol 325mg Tab) 650 mg PO Q6H PRN PRN Reason: Fever >100.4 F Last Admin: 01/10/17 14:48 Dose: 650 mg Diltiazem HCl (Cardizem) 60 mg PO QID [facility] Last Admin: 01/12/17 11:11 Dose: 60 mg Furosemide (Lasix) 20 mg IVP DAILY [facility] Last Admin: 01/12/17 11:11 Dose: 20 mg Sodium Chloride (Sodium Chloride 0.45%) 1,000 mls @ 30 mls/hr IV .Q24H [facility] Last Admin: 01/12/17 06:50 Dose: Not Given Insulin Human Regular (Humulin R Med) 0 units SC ACHS [facility] PRN Reason: Protocol Last Admin: 01/12/17 08:49 Dose: Not Given Levalbuterol HCl (Xopenex) 0.63 mg IH [id number] [facility] Last Admin: 01/12/17 08:16 Dose: 0.63 mg Levalbuterol HCl (Xopenex) 0.63 mg IH Q2 PRN PRN Reason: Shortness of Breath Last Admin: 01/11/17 09:52 Dose: 0.63 mg Metoprolol Tartrate (Lopressor) 25 mg PO BID [facility] Last Admin: 01/12/17 11:11 Dose: 25 mg Potassium Chloride (K-Dur 20 Meq Er Tab) 20 meq PO BRK [facility] Last Admin: 01/12/17 08:49 Dose: 20 meq Warfarin Sodium (Coumadin) 2 mg PO 1800 [facility] PRN Reason: Protocol Last Admin: 01/11/17 17:39 Dose: 2 mg - Labs Labs: 01/11/17 07:00 01/11/17 07:00 PT 22.4 Seconds (9.9-11.8) H 01/09/17 07:39 INR 2.07 (0.93-1.08) H 01/09/17 07:39 APTT 35.8 Seconds (23.7-30.8) H 01/07/17 21:35 - Constitutional Appears: No Acute Distress, Chronically Ill - Head Exam Head Exam: NORMAL INSPECTION - Eye Exam Eye Exam: Normal appearance, PERRL - ENT Exam ENT Exam: Mucous Membranes Moist - Respiratory Exam Respiratory Exam: Decreased Breath Sounds, Rhonchi, NORMAL BREATHING PATTERN - Cardiovascular Exam Cardiovascular Exam: Irregular Rhythm, +S1, +S2 - GI/Abdominal Exam GI & Abdominal Exam: Soft, Normal Bowel Sounds Additional comments: no tenderness or guarding - Extremities Exam Additional comments: contracted, weeping edema of upper extremities - Skin Skin Exam: Dry, Pallor Assessment and Plan - Assessment and Plan (Free Text) Assessment: 76 year old female admitted with COPD exacerbation, pneumonia,debility. The patient appears comfortable. Denies pain,dyspnea. Confused, does not remember speaking with me yesterday. Patient states that she wants to go home. I explained due to her lung disease,other illness and severe debility that she would need 24 hour care. She states that her son and can care for her. I reminded her that both and son work and could not be at home or her. I explained that she might receive more comprehensive care in a facility which could address all of her needs. She shrugged her shoulder but did continue conversation when asked if this would be a better plan for her. I will try to reach patient's son in order to discuss advance care planning. Plan: Will assist with advance care planning
--- NOTE | 2017-01-12 13:32 | PN ---
DATE: 01/12/2017 The patient is without distress in bed. PHYSICAL EXAMINATION: VITAL SIGNS: Blood pressure 111/74, heart rate in the 80s, atrial fibrillation. NECK: Negative JVD. LUNGS: Decreased breath sounds. HEART: Reveals S1, S2. EXTREMITIES: Without edema. LABORATORY DATA: Hemoglobin is 11.6. BUN and creatinine are unremarkable. Potassium is 3.5. INR i s 2.07. Dopplers of the upper extremities are negative for venous thrombus. IMPRESSION: 1. Atrial fibrillation, which is better controlled. 2. The anticoagulation is near therapeutic. 3. Dementia. 4. Edema in the upper extremities. PLAN: Given these findings, we will change her short term Cardizem to mcfp Cardizem. We will d iscontinue telemetry today. Norbert Wong MD cc: [id number] TT: 01/12/2017 13:31:44 Confirmation # [id number] Dictation # [id number] dn
[2017-01-12] MEDS: diltiaZEM 180 mg/24 Hours CD Cap PO SCH (17:26)
[2017-01-13] MEDS: Levalbuterol 0.63 MG/3 ML Inhal Soln UD IH SCH ×3 (07:40→21:06)
--- NOTE | 2017-01-13 07:45 | PN ---
DATE: 01/13/2017 SUBJECTIVE: The patient appears comfortable this morning. She is not short of breath at rest. PHYSICAL EXAMINATION: VITAL SIGNS: Temperature is 97.8, pulse 52, respirations 18/20, blood pressure 96/67. Oxygen saturation on nasal cannula is 98%. HEENT: Normocephalic, atraumatic. No JVD. CARDIOVASCULAR: Systolic ejection murmur at the lower left sternal border. No S3 gallop. LUNGS: Decreased breath sounds at the bases. Less rhonchi. No wheezing. EXTREMITIES: No clubbing, cyanosis, or edema. Calves are nontender to palpation. GASTROINTESTINAL: Abdomen is soft, nontender, nondistended. Bowel sounds are positive. SKIN: No acute rash. NEUROLOGIC: Limited at the present time. IMPRESSION: 1. Rule out right lower lobe pneumonia. 2. Chronic obstructive pulmonary disease. 3. Congestive heart failure. 4. Cardiac arrhythmias. 5. Multiple electrolyte abnormalities. PLAN: The patient appears comfortable this morning. She is not short of breath at rest. She remains very weak and disabled looking. On physical exam, her bronchospasm is significantly less. In addition, the alveolar arterial gradient is also significantly less. I will continue with the current nebulizer treatments and aspiration precautions for now. The patient is now off antibiotic therapy - as per infectious disease. There are no temperatures noted. Repeat a.m. labs are pending. Clinical status of the patient is certainly improved - compared to the initial presentation. However, unfortunately, the overall status/prognosis of this patient does remain poor. Input by Marilia Dean (palliative care) is noted. I will discuss the above with Dr. Peña. Jnuior Hollins MD cc: [id number] TT: 01/13/2017 07:44:22 Confirmation # [id number] Dictation # [id number] musa GRIFFITH
[2017-01-13 08:22] LABS: HEMATOCRIT 37.2 % (36.0-48.0); MEAN CELL VOLUME 85.9 fL (80.0-105.0); MEAN CORPUSCULAR HEMOGLOBIN 28.2 pg (25.0-35.0); MEAN CORPUSCULAR HGB CONC 32.8 g/dl (31.0-37.0); MEAN PLATELET VOLUME 8.7 fl (7.0-11.0); RED CELL DISTRIBUTION WIDTH 19.2 % (11.5-14.5); WHITE BLOOD COUNT 7.5 10^3/ul (4.5-11.0)
[2017-01-13 08:41] LABS: INR 3.75 (0.93-1.08)
[2017-01-13 09:12] LABS: ALB/GLOB RATIO 0.9 (1.1-1.8); ALKALINE PHOSPHATASE 115 U/L (38-133); ALT/SGPT 33 U/L (7-56); AST/SGOT 35 U/L (15-39); BILIRUBIN,TOTAL 0.4 mg/dL (0.2-1.3); BLOOD UREA NITROGEN 12 mg/dL (7-21); CALCIUM 7.7 mg/dL (8.4-10.5); CARBON DIOXIDE 26 mmol/L (21-33); CHLORIDE 103 mmol/L (98-107); GFR AFRICAN-AMERICAN > 60; GLUCOSE,RANDOM 82 mg/dL (70-110); POTASSIUM 4.3 mmol/L (3.6-5.0); SODIUM 132 mmol/L (132-148); TOTAL PROTEIN 5.4 g/dL (5.8-8.3)
--- NOTE | 2017-01-13 09:49 | PN ---
DATE: 01/13/2017 SUBJECTIVE: The patient is in bed, confused, but in no acute distress. PHYSICAL EXAMINATION: VITAL SIGNS: Blood pressure 117/78. Heart rate is in the 50s. NECK: Negative JVD. LUNGS: Decreased breath sounds without rales. HEART: Reveals S1, S2. EXTREMITIES: Decreased edema. LABORATORY DATA: Hemoglobin is 12.2. Laboratories also includes a potassium of 4.3. IMPRESSION: 1. Atrial fibrillation. 2. Dementia. 3. Decreased edema in the upper extremities. 4. Will need to adjust the Coumadin given that her INR is 3.75. Norbert Wong MD cc: [id number] TT: 01/13/2017 09:49:04 Confirmation # [id number] Dictation # [id number] mn
[2017-01-13] MEDS: Insulin Reg-MEDIUM-Coverage SC SCH ×4 (10:05→22:26)
[2017-01-13] MEDS: diltiaZEM 180 mg/24 Hours CD Cap PO SCH (10:05)
[2017-01-13] MEDS: Potassium Chloride 20 mEq ER Tab PO SCH (10:05)
--- NOTE | 2017-01-13 10:53 | DS ---
She is resting in bed, slept fairly well. Difficult to have a conversation with her. She is in and out of it, does not want to be disturbed at this time. She is talking to me though. She is on Cardizem, Coumadin, insulin, potassium, Lasix, Lopressor, IV fluids, Tylenol, and Xopenex. She is eating very poorly also, may be 30%. PHYSICAL EXAMINATION: VITAL SIGNS: She has a 97.8 temp, 52 pulse, 96/67 blood pressure, 20 respiratory rate. HEENT: Her head is atraumatic, normocephalic. Throat is moist. NECK: Supple. HEART: Regular rate. LUNGS: Decreased breath sounds, but clear. ABDOMEN: Soft. EXTREMITIES: Contracted x 4. She is bedridden. I do not think there is any restorative care that can help her. I think she needs to be a senior care placement. I think there is an issue about going home where the son would take care of her, but the son and the work. I do not see how they could take her home. I am try ing to get her to [facility] for senior care placement. If she does go home, my recommendation w ould be hospice. I do not think she would live or survive. I reached out to the son. I discussed a t length with the patient. I will talk to case management. My plan is either discharge to [facility] for long-term care or home with hospice and that is my plan. Hopefully, he will call me later. She is here for numerous reasons. She had pneumonia, chronic obstructive pulmonary disease, hyperten lester and sepsis. Angus Peña DO cc: [id number] TT: 01/13/2017 10:52:31 tx
--- NOTE | 2017-01-13 16:39 | CP.PCM.PN ---
Subjective - Date & Time of Evaluation Date of Evaluation: 01/13/17 Time of Evaluation: 09:45 - Subjective Subjective: Comfortable, no fevers overnight, not in distress. Objective - Vital Signs/Intake and Output Vital Signs (last 24 hours): Temp Pulse Resp BP Pulse Ox 97.5 F L 20 L 20 117/78 99 01/13/17 08:17 01/13/17 08:17 01/13/17 08:17 01/13/17 08:17 01/13/17 08:17 Intake and Output: 01/13/17 01/13/17 06:59 18:59 Intake Total 1 Output Total 1 Balance 0 - Medications Medications: Current Medications Acetaminophen (Tylenol 325mg Tab) 650 mg PO Q6H PRN PRN Reason: Fever >100.4 F Last Admin: 01/12/17 12:44 Dose: 650 mg Diltiazem HCl (Cardizem Cd) 180 mg PO DAILY [facility] Last Admin: 01/12/17 17:26 Dose: 180 mg Furosemide (Lasix) 20 mg IVP DAILY [facility] Last Admin: 01/12/17 11:11 Dose: 20 mg Sodium Chloride (Sodium Chloride 0.45%) 1,000 mls @ 30 mls/hr IV .Q24H [facility] Last Admin: 01/12/17 06:50 Dose: Not Given Insulin Human Regular (Humulin R Med) 0 units SC ACHS LOIS PRN Reason: Protocol Last Admin: 01/12/17 15:49 Dose: Not Given Levalbuterol HCl (Xopenex) 0.63 mg IH [id number] [facility] Last Admin: 01/13/17 07:40 Dose: 0.63 mg Levalbuterol HCl (Xopenex) 0.63 mg IH Q2 PRN PRN Reason: Shortness of Breath Last Admin: 01/11/17 09:52 Dose: 0.63 mg Metoprolol Tartrate (Lopressor) 25 mg PO BID [facility] Last Admin: 01/12/17 17:24 Dose: 25 mg Potassium Chloride (K-Dur 20 Meq Er Tab) 20 meq PO BRK LOIS Last Admin: 01/12/17 08:49 Dose: 20 meq Warfarin Sodium (Coumadin) 2 mg PO 1800 LOIS PRN Reason: Protocol Last Admin: 01/12/17 17:24 Dose: 2 mg - Labs Labs: 01/13/17 07:00 01/11/17 07:00 PT 40.5 Seconds (9.9-11.8) H* 01/13/17 07:00 INR 3.75 (0.93-1.08) H* 01/13/17 07:00 APTT 35.8 Seconds (23.7-30.8) H 01/07/17 21:35 - Constitutional Appears: Non-toxic, No Acute Distress - Head Exam Head Exam: NORMAL INSPECTION - ENT Exam ENT Exam: Mucous Membranes Moist - Neck Exam Neck Exam: absent: Meningismus - Respiratory Exam Respiratory Exam: Decreased Breath Sounds - Cardiovascular Exam Cardiovascular Exam: +S1, +S2 - GI/Abdominal Exam GI & Abdominal Exam: Soft. absent: Tenderness Assessment and Plan - Assessment and Plan (Free Text) Plan: Assessment Consider sepsis due to right lower lobe healthcare-associated pneumonia, on top of acute on chronic congestive heart failure, clinically improved HTN COPD DVT and PE on anticoagulation cataracts history of left hip fracture S/P arthroplasty history of urinary incontinence Plan completed 5 days of Merrem - will continue to monitor off antibiotics since she is at risk for nosocomial infections Discussed with Dr. Hollins
[2017-01-14] MEDS: Levalbuterol 0.63 MG/3 ML Inhal Soln UD IH SCH ×3 (03:10→13:38)
--- NOTE | 2017-01-14 07:59 | PN ---
DATE: 01/14/2017 SUBJECTIVE: The patient appears comfortable at rest. She is not short of breath. PHYSICAL EXAMINATION: VITAL SIGNS: Temperature is 97.4, pulse 82, respirations 18/20, blood pressure 106/67. Oxygen saturation on nasal cannula is 98%. HEENT: Normocephalic, atraumatic. No JVD. CARDIOVASCULAR: Systolic ejection murmur at the lower left sternal border. No S3 gallop. LUNGS: Decreased breath sounds at the bases. Minimal/less rhonchi. No wheezing. EXTREMITIES: No clubbing, cyanosis, or edema. Calves are nontender to palpation. GASTROINTESTINAL: Abdomen is soft, nontender, nondistended. Bowel sounds are positive. SKIN: No acute rash. NEUROLOGIC: Limited at the present time. IMPRESSION: 1. Rule out right lower lobe pneumonia. 2. Chronic obstructive pulmonary disease. 3. Congestive heart failure. 4. Cardiac arrhythmias. 5. Multiple electrolyte abnormalities. PLAN: The patient appears comfortable this morning. She is not short of breath at rest. She remains weak and disabled looking. On physical exam, her bronchospasm continues to resolve. In addition, the alveolar arterial gradient also continues to resolve. I will continue with the current nebulizer treatments and aspiration precautions for now. The patient is now off on antibiotic therapy -- as per infectious disease. Input by Dr. Garcia is noted. There are no temperatures noted. The leukocytosis has completely resolved. Clinical status of the patient is significantly improved -- compared to the initial presentation. However, unfortunately, the overall status/prognosis for this patient remains very poor. Input by Marilia Dean -- palliative care -- is noted. I did discuss the case with the night nurse at length. The patient is for probable transfer to a subacute facility later today. I will discuss the above with Dr. Peña. Junior Hollins MD cc: [id number] TT: 01/14/2017 07:58:33 Confirmation # [id number] Dictation # [id number] GLADIS
[2017-01-14 08:33] VITALS: RESP 18; TEMP 97.8; O2SAT 95
[2017-01-14] MEDS: Potassium Chloride 20 mEq ER Tab PO SCH (10:07)
[2017-01-14] MEDS: diltiaZEM 180 mg/24 Hours CD Cap PO SCH (10:07)
[2017-01-14] MEDS: Insulin Reg-MEDIUM-Coverage SC SCH ×2 (10:10→12:20)
[2017-01-14 10:14] VITALS: BP 112/78; PULSE 85
--- NOTE | 2017-01-14 11:04 | DS ---
I tried to discharge her yesterday. I am hoping to get her to [facility] or [facility] in [facility] for permanent placement. She can no longer take care of herself, and I believe it is unsafe for her to go home at this time. She needs 24-hour care. She is on Cardizem, Coumadin which is on hold, insulin coverage, potassium, Lasix, Lopressor, Tylenol , Xanax and Xopenex. We have changed all the medicines to p.o. at this time. She is alert. She is talking. She is comfortable in bed but weak and lethargic and not doing much. PHYSICAL EXAMINATION: VITAL SIGNS: 97.4 temp, 82 pulse, 106/67 blood pressure, 20 respiratory rate, 98% O2 sat on room air . HEENT: Head is atraumatic, normocephalic. Throat is moist. NECK: Supple. HEART: Regular rate. LUNGS: Decreased breath sounds but clear. ABDOMEN: Soft. EXTREMITIES: No edema, in contractured state. LABORATORY DATA: She has a 7.5 white count, 12.2 hemoglobin, 289 platelets. INR was at 3.75. We he ld the Coumadin. Will check it again tomorrow and today. Sodium 132, potassium 4.3. Last sugar was 87. AST is 35, ALT is 32, alk phos 115. She is here for right lower lobe pneumonia, improving; chronic obstructive pulmonary disease, hyperte nsion, chronic obstructive pulmonary disease, sepsis and debility. She needs 24-hour care now. We a re trying to get her to [facility] or [facility]. Hopefully we will get the authorization from the [employer] and I will follow her there. Angus Peña DO cc: [id number] TT: 01/14/2017 11:03:34 musa
--- NOTE | 2017-01-14 14:04 | PN ---
DATE: 01/14/2017 The patient is without distress. PHYSICAL EXAMINATION: VITAL SIGNS: Blood pressure 112/75, the heart rate is in the 80s. NECK: Negative JVD. LUNGS: Decreased breath sounds. HEART: Revealed S1, S2. EXTREMITIES: Without edema. Hemoglobin is 12.2. Glucose is 111. IMPRESSION: 1. Atrial fibrillation. 2. Pneumonia. 3. Improved edema of the upper extremities. 4. Dementia. Given these findings, the patient's heart rate is well controlled. From a cardiac perspective, the p atjuliann can be transferred to a [facility]. Norbert Wong MD cc: [id number] TT: 01/14/2017 14:03:41 Confirmation # [id number] Dictation # [id number]
--- NOTE | 2017-01-14 20:06 | PN ---
DATE: 01/14/2017 The patient was seen earlier this morning in room 572, bed 1. The patient had no fevers and no chill s. No nausea. PHYSICAL EXAMINATION: VITAL SIGNS: Temperature is 98, blood pressure is 108/70, respiratory rate of 18, a heart rate of 96 . HEENT: Unremarkable. NECK: Supple. LUNGS: Decreased breath sounds. HEART: Normal S1, S2. ABDOMEN: Soft, nontender. LABORATORY DATA: Reveals a white count of 7.5, hemoglobin of 12, platelets of 289. Chemistries reve al a BUN of 19, creatinine of 0.6. Urinalysis is noted. Microbiology is noted. The blood cultures are negative. Urine cultures are negative. ASSESSMENT AND PLAN: A 76-year-old female seen earlier this morning in room 572, bed 1, with r ight lower lobe, healthcare-associated pneumonia on top of [id number] congestive heart failure, hypertension, chronic obstructive lung disease, deep venous thrombosis, pulmonary emboli on anticoag ulation, completed the antibiotic therapy, off of antibiotics. The patient is at risk for developing nosocomial infections. Possible discharge today. Gavino Esposito MD cc: [id number] TT: 01/14/2017 20:05:17 Confirmation # [id number] Dictation # [id number] tx
== END 2017-01-14 14:32 | DRG 871 ==
LOC: ED 21:21 → ERH 22:44 → 2RSO 01-08 00:17 → 5RSO 01-13 00:35
PROVIDERS: ADMIT Family Medicine; ATTEND Family Medicine
PROC: 3E0F7GC Introduction of Other Therapeutic Substance into Respiratory Tract, Via Natural or Artificial Opening (ICD-10-PCS; principal; 2017-01-08)
DX: A41.9 Sepsis, unspecified organism (principal); J18.9 Pneumonia, unspecified organism; I11.0 Hypertensive heart disease with heart failure; I50.9 Heart failure, unspecified; I48.91 Unspecified atrial fibrillation; F03.90 Unspecified dementia, unspecified severity, without behavioral disturbance, psychotic disturbance, mood disturbance, and anxiety; J44.0 Chronic obstructive pulmonary disease with (acute) lower respiratory infection; E11.9 Type 2 diabetes mellitus without complications; F32.9 Major depressive disorder, single episode, unspecified; H26.9 Unspecified cataract; Z74.01 Bed confinement status; Z99.3 Dependence on wheelchair; Z86.718 Personal history of other venous thrombosis and embolism; Z86.711 Personal history of pulmonary embolism; Z79.01 Long term (current) use of anticoagulants; Z87.891 Personal history of nicotine dependence; Z82.49 Family history of ischemic heart disease and other diseases of the circulatory system